=== PATIENT | female | born 1955 | race Caucasian/White ===

== ENCOUNTER 2019-11-30 02:58 | Inpatient (IN) | payer MEDICARE, SELFPAY ==
[2019-11-30] VITALS (20 sets, daily range): BP systolic 131–155; BP diastolic 68–83; PULSE 71–96; RESP 16–21; TEMP 36.2–37; O2SAT 92–99; BMI 26.8; BMI 25.5
--- NOTE | 2019-11-30 03:03 | RAD_ITS ---
STUDY: X-RAY CHEST REASON FOR EXAM: Female, 64 years old. HYPERTENSION -- NEURO SYMPTOMS TECHNIQUE: Single frontal view of the chest. COMPARISON: None. FINDINGS: The lungs are clear and expanded. There is no demonstrated pleural abnormality. There is borderline cardiomegaly. Aortic calcifications. There are diffuse degenerative changes of the visualized thoracic spine. Normal visualized ribs, clavicles, and shoulders. There is no demonstrated abnormality of the visualized soft tissue structures of the upper abdomen. RAD/Chest 1 View IMPRESSION: Degenerative changes, as described above. No demonstrated acute cardiopulmonary process. Electronically Signed: Matthew Llamas, at 3:58 EDT Tel , Service support ,
--- NOTE | 2019-11-30 03:03 | EKG12_ITS ---
Test Reason : STROKE Blood Pressure : / mmHG Vent. Rate : 086 BPM Atrial Rate : 086 BPM P-R Int : 218 ms QRS Dur : 092 ms QT Int : 406 ms P-R-T Axes : 045 -20 033 degrees QTc Int : 485 ms Sinus rhythm with 1st degree A-V block Possible Left atrial enlargement Borderline ECG Confirmed by MADISON VILLEGAS ([id number]), international editorial producer MELITON HUDSON ([id number]) on 12/01/2019 10:12:24 AM Referred By: Vito Gee Confirmed By:MADISON VILLEGAS
--- NOTE | 2019-11-30 03:03 | CT_ITS ---
STUDY: CT BRAIN WITHOUT CONTRAST REASON FOR EXAM: Female, 64 years old. CVA,RT SIDED WEAKNESS,SLURRED SPEECH THIS AM,LAST KNOWN WELL 10PM RADIATION DOSAGE (If Supplied By Facility): CTDIvol = ( 44.99 ) mGy, DLP = ( 762.36 ) mGycm TECHNIQUE: Transaxial CT imaging of the brain was performed without administration of intravenous contrast material. Individualized dose optimization techniques were used for this CT. COMPARISON: No relevant priors. FINDINGS: Normal soft tissue structures. Normal calvarium. There is mild cerebral atrophy with widening of the extra-axial spaces and ventricular dilatation. There are areas of decreased attenuation within the white matter tracts of the supratentorial brain, consistent with mild microvascular disease changes. Normal basal ganglia and thalami. Normal brainstem. Normal cerebellum. There is no intracranial hemorrhage. There are no findings of an acute ischemic infarction. Normal visualized paranasal sinuses. CT/Brain/Head without Contrast IMPRESSION: Involutional changes along with mild microangiopathic white matter disease. No acute intracranial hemorrhage or space-occupying lesion. N.B. : The above information has been verbally conveyed by Leandra Coyle MD to Jarrod Farrell MD, AA, on 11/30/2019 03:26:28 (ET). Electronically Signed: Leandra Coyle MD at 3:19 EDT , Service support ,
--- NOTE | 2019-11-30 03:03 | ED.RN ---
NO OLD EKGS IN MUSE
--- NOTE | 2019-11-30 03:04 | CT_ITS ---
We are attempting to reach an attending provider to discuss findings. An addendum with communication details will be sent when the communication is complete. STUDY: CTA HEAD AND NECK WITH CONTRAST REASON FOR EXAM: Female, 64 years old. RT SIDED WEAKNESS,SLURRED SPEECH,LAST KNOWN WELL AT 10PM RADIATION DOSAGE (If Supplied By Facility): CTDIvol = ( 15.30 ) mGy, DLP = ( 645.32 ) mGycm TECHNIQUE: CT angiography was performed with a multi-detector CT scanner. Data acquisition was obtained from the skull base through the vertex following intravenous administration of IV 100mL [id number]-[id number]. MIP images were reconstructed from the axial data set. Post-processing of the angiographic images was performed, with multiplanar reformation and 3D reconstruction. Individualized dose optimization techniques were used for this CT. COMPARISON: No relevant priors. FINDINGS: Normal bilateral petrous carotid arteries. There is calcified plaque formation of the right cavernous carotid artery, without a cross-sectional luminal stenosis. There is calcified plaque formation of the left cavernous carotid artery, without a cross-sectional luminal stenosis. Normal right A1 segments of the anterior cerebral artery. Normal left A1 segments of the anterior cerebral artery. Normal intact anterior communicating artery (ACOM). Normal bilateral A2 segments of the anterior cerebral arteries. Normal right M1 and M2 segments of the middle cerebral arteries, with a normal M1 bifurcation. Normal left M1 and M2 segments of the middle cerebral arteries, with a normal M1 bifurcation. Normal right posterior communicating artery (PCOM). Normal left posterior communicating artery (PCOM). Normal bilateral vertebral arteries. Normal basilar artery with a normal basilar bifurcation. The visualized bilateral superior cerebellar (SCA) arteries are normal. Normal bilateral P1, P2 and visualized P3 segments of the posterior cerebral arteries. There is no demonstrated aneurysm of the [place] of [place]. There is no demonstrated abnormality of the visualized brain. AORTIC ARCH: There is atherosclerotic calcific plaque formation of the aortic arch and great vessels arising from the aortic arch, without a hemodynamically significant stenosis. There is a normal origin of the brachiocephalic, left common carotid, and left subclavian arteries. RIGHT CAROTID ARTERIES: Normal right common carotid artery (CCA). Normal right common carotid bulb. Normal origin of the right internal carotid (ICA) artery without a hemodynamically significant stenosis. Normal visualized cervical portion of the right internal carotid artery. Normal origin of the right external carotid artery (ECA). LEFT CAROTID ARTERIES: Normal left common carotid artery (CCA). Normal left common carotid bulb. Normal origin of the left internal carotid (ICA) artery without a hemodynamically significant stenosis. Normal visualized cervical portion of the left internal carotid artery. Normal origin of the left external carotid artery (ECA). VERTEBRAL ARTERIES: Normal bilateral vertebral arteries. CT/CTA Head AND Neck W/ Contrast IMPRESSION: Mild calcified atherosclerotic disease involving the aortic arch and cavernous portion of the bilateral internal carotid arteries. Otherwise unremarkable CTA Head and neck with contrast. Electronically Signed: Leandra Coyle MD at 3:48 EDT , Service support ,
[2019-11-30 03:20] LABS: Absolute Lymphocyte Count 2.12 X10^3/uL (0.83-4.51); Absolute Neutrophil Count 5.5 X10^3/uL (2.0-7.7); Basophil# 0.05 X10^3/uL; Basophil% 0.6 % (0-1); Eosinophil# 0.17 X10^3/uL; Hemoglobin 12.2 g/dL (12.0-15.0); Lymphocyte # 2.12 X10^3/ul (4.0); Lymphocyte % 25.4 % (19-41); Mean Corp Hgb Conc 33.9 g/dL (32-36); Mean Corpuscular Volume 91.4 fL (81-99); Mean Platelet Vol. 9.9 fl (6.2-12.0); Monocyte# 0.43 X10^3/uL; Monocyte% 5.2 % (0-10); NRBC Flagged by Analyzer 0 % (0-5); Neutrophil # 5.54 X10^3/uL (2.7-7.7); Neutrophil % 66.4 % (47-70); Platelet Count 214 K/mm3 (150-450); RBC Distribution Width CV 14.1 % (11.6-14.6); RBC Distribution Width SD 47.4 fl (35.1-43.9); Red Blood Count 3.94 M/mm3 (4.2-5.4); White Blood Count 8.3 K/mm3 (4.4-11.0)
[2019-11-30 03:28] LABS: International Normalized Ratio 0.9; Prothrombin Time (Protime)PT. 12.1 SECONDS (11.7-14.9)
[2019-11-30 03:29] LABS: Partial Thromboplast Time 26.8 Seconds (24.1-36.2)
[2019-11-30 03:37] LABS: Anion Gap 9 (5-15); BUN 16 mg/dL (7-18); BUN/Creat Ratio 19.7 RATIO (10-20); Calcium,Total 8.6 mg/dL (8.5-10.1); Chloride 99 mmol/L (98-107); Creatinine, Serum 0.81 mg/dL (0.55-1.02); EST Glomerular Filtration Rate 75 mL/min (>60); Est Glom Filt Rate - Afr Amer 91 mL/min (>60); Estimated Creatinine Clearance 63.96 ml/min; Glucose 122 mg/dL (74-106); Potassium 3.2 mmol/L (3.5-5.1); Sodium Level 134 mmol/L (136-145)
--- NOTE | 2019-11-30 03:54 | ED.DCSUM_ITS ---
- ER Visit Summary Date of Service: 11/30/19 Chief Complaint: [Slurred speech and right-sided weakness] History of Present Illness: The patient is a 64 F [presents the emergency department with symptoms that she noted about an hour and a half prior to coming into the ER. Patient states that she went to bed around 10 PM. Patient had been drinking 3 beers and took a melatonin as well as some Benadryl because she is been having some issues with some teeth that will require a root canal and she has been self-medicating. Patient woke up to use the restroom approximately 1:30 AM and noted that her right arm was not working well and she had a difficult time walking with her right leg. Patient complained of paresthesias to the right side of her body. Patient thought her speech sounded somewhat slurred. She is never had symptoms like this before. She tells me she has no medical history. Patient not on any blood thinners. She denies any falls or head injuries.] Physical Examination: [HEENT-PERRLA, EOMI. Cranial nerves II through XII grossly intact. TMs clear. Mucous membranes moist. No adenopathy. Cardiovascular-regular rate and rhythm without murmur or ectopy Lungs-clear to auscultation, chest wall stable without crepitus or subcu emphysema Abdomen-normoactive bowel sounds, soft, nontender, no rebound or rigidity, no peritoneal signs. Neuro rtyl-[id number]-qwqv and heel ruiz testing reveals limb ataxia with the right arm and right leg. Patient had some subtle weakness of the right arm. She had paresthesias of the right arm and leg as well as the right side of her face. Her NIH stroke scale was a 5. No facial droop noted. Extremities-intact ?4, normal range of motion, normal pulses, atraumatic] Test Results: [CT scan of the brain without contrast obtained after a stroke team was called. The CT scan was unremarkable. CBC with differential was normal. Chemistries unremarkable other than a slightly depressed potassium of 3.2. Troponin is less than 0.015. Blood sugar was 122. Alcohol was 8.0. CTAs of the head and neck were unremarkable.] Emergency Department Course and Treatment: I discussed case with stroke neurologist at [facility] who felt patient was out of the window for TPA given that last known well was about 5 hours ago. It was felt patient was not a good TPA candidate. It was recommended that patient be admitted for further stroke work-up. She was given baby aspirin.] Treatment Plan: [Admit] Disposition: [Admit] Impression: [Cerebrovascular accident] This note was generated with [employer] dictation software. It may contain incorrect words, spelling, and punctuation that were not noted in review of the chart prior to signing ED Disposition - Plan for ED Patient: Referrals: Care Physician,No Primary [Primary Care Provider] -
[2019-11-30] MEDS: Aspirin 81 MG TAB.CHEW PO (03:59)
--- NOTE | 2019-11-30 04:17 | PCM.HP.STD ---
History of Present Illness Date of Admission: 11/30/19 Chief Complaint: CVA The patient is a 64 year old F with a PMH as below who presents with right-sided numbness tingling and weakness as well as some slurred speech. She states that she was possibly having a root canal but that got canceled because of the pain she ended up drinking 3 beers, took melatonin, as well as a Benadryl. She states that that was around 8:00 last night and she went to bed at around 10 PM. She woke up about an hour ago and had right-sided deficits with numbness and tingling in her right upper and lower extremity as well as weakness and some slurred speech. She also has some tingling in the right side of her face. She says that she got up to pee and actually fell. Did not hit her head or blackout. She says that things are improving, her right leg is no longer significantly weak and her slurred speech has essentially resolved. She still has some tingling in her face and in her right upper extremity. In the ER she had an NIH of 5. CT the brain was negative and CTA of the head and neck was unremarkable. She has no other medical history but does admit to not seeing a doctor regularly. Past Medical History Allergies No Known Allergies Allergy (Verified 11/30/19 03:02) Home Medications: Ambulatory Orders Medication Instructions Recorded Famotidine [Pepcid AC] 20 mg PO DAILY 11/30/19 Surgical History: - - Tubal ligation Smoking Status: Never smoker Tobacco Use: Non-smoker Alcohol: Occasional Drugs: None - *Family History Maternal History Items: COPD, Heart Disease Paternal History Items: - - Alcohol abuse Review of Systems Constitutional: Denies: Chills, Fever, Weight Change HEENT: Denies: Head Aches, Sinus Congestion, Sinus Drainage Cardiovascular: Denies: Chest Pain, Palpitations Respiratory: Denies: Cough, Shortness of breath at rest, Sputum production Gastrointestinal: Denies: Abdominal Pain, Nausea, Vomiting Genitourinary: Denies: Dysuria Musculoskeletal: Denies: Joint Pain, Joint Tenderness Skin: Denies: Rash, Wounds Neurological: Reports: Slurred speech, Focal weakness, Numbness, Tingling Psychiatric: Denies: Anxiety, Depression Hematologic/ Lymphatic: Denies: Easy Bruising, Easy Bleeding VTE Information - Inpt Only VTE Present on Admission: No - Physical Exam Vitals/I&O's: Vital Signs Temp Pulse Resp BP Pulse Ox 98.3 F 93 18 144/81 H 97 11/30/19 04:00 11/30/19 04:00 11/30/19 04:00 11/30/19 04:00 11/30/19 04:00 Oxygen Delivery Method Room Air Weight: 166 lb 0.129 oz Body Mass Index (BMI) 26.8 Finger Stick Blood Glucose 130 General: Alert, Oriented x3, Cooperative, No apparent distress HEENT: Atraumatic, PERRLA, EOMI, Normocephalic Oral: Moist Mucosa Neck: Supple, No JVD Lungs: Clear to auscultation, Normal air movement, No rhonchi, No wheeze, No rales Cardiovascular: Regular rate, Regular Rhythm, Normal S1, Normal S2, No murmurs Abdomen: Soft, Non Tender, Non-Distended, No Hepato-splenomegaly Extremities: No edema, Capillary Refill Less than 3 Seconds Skin: No rashes, No breakdown Neurological: Cranial nerves II-XII grossly intact, Deep Tendon Reflexes 2+/4 and Symmetrical, Motor Exam 5/5 strength throughout, - - Diminished sensation in the right face and right upper extremity. Also [id number] on the right is slightly ataxic compared to the left. Psych/Mental Status: Normal Affect, Appropriate Laboratory Results 11/30/19 03:10: WBC 8.3, RBC 3.94 L, Hgb 12.2, Hct 36.0 L, MCV 91.4, MCH 31.0, MCHC 33.9, RDW Std Deviation 47.4 H, RDW Coeff of Sandor 14.1, Plt Count 214, MPV 9.9, Immature Gran % (Auto) 0.400, Neut % (Auto) 66.4, Lymph % (Auto) 25.4, [place] % (Auto) 5.2, Eos % (Auto) 2.0, Baso % (Auto) 0.6, Absolute Neuts (auto) 5.5, Absolute Lymphs (auto) 2.12, Nucleated RBC % 0 11/30/19 03:10: PT 12.1, INR 0.9, APTT 26.8 11/30/19 03:10: Sodium 134 L, Potassium 3.2 L, Chloride 99, Carbon Dioxide 26.0, Anion Gap 9, BUN 16, Creatinine 0.81, Estim Creat Clear Calc 63.96, Est GFR (MDRD) Af Amer 91, Est GFR (MDRD) Non-Af 75, BUN/Creatinine Ratio 19.7, Glucose 122 H, Calcium 8.6, Troponin I < 0.015 11/30/19 03:10: Ethyl Alcohol 8.0 Current Medications Sodium Chloride () 1,000 mls @ 100 mls/hr IV .Q10H ONE Stop: 11/30/19 13:02 Labetalol HCl (Trandate) 20 mg IV X1 PRN PRN Reason: BLOOD PRESSURE Assessment/Plan 1. Left-sided CVA with right-sided symptoms -She has slurred speech, with right-sided numbness and tingling in her right upper and lower extremities which is improving, as well as right upper extremity ataxia -On presentation to the ER her NIH was 5 however she was outside of the window for TPA based on consultation with [facility] neurology -CTA of her head and neck was unremarkable -Continue with aspirin, PT/OT/speech therapy -Continue with statin therapy -MRI in the morning -Permissive hypertension however labetalol and hydralazine are available if necessary 2. GERD -Stable -Continue with Pepcid DVT: Lovenox Inpatient E&M: 33708 Init Hosp L2
--- NOTE | 2019-11-30 04:20 | MRI_ITS ---
STUDY: MRI BRAIN WITHOUT CONTRAST REASON FOR EXAM: Female, 64 years old. cva, rt side weakness, slurred speech TECHNIQUE: Standardized multiplanar fat and water weighted pulse sequences were obtained. COMPARISON: CT 11/30/2019 FINDINGS: There is mild cerebral atrophy with widening of the extra-axial spaces and ventricular dilatation. Normal white matter tracts of the supratentorial brain. 1 cm oval hyperintensity of the lateral aspect of the left thalamus demonstrates restricted diffusion consistent with an acute infarct. Normal T2* images of the brain without demonstrated susceptibility artifact. There is no demonstrated hemosiderin stain. Normal bilateral basal ganglia. Normal thalami. There is no extra-axial fluid accumulation. Normal flow voids within the major intracranial circulation suggesting patency by spin echo criteria. Normal sella turcica, pituitary gland, infundibular stalk, optic chiasm and hypothalamus. Normal tectal plate and pineal gland. Normal midbrain, roxane and medulla. Normal cerebellum. Normal basal cisterns. Normal bilateral temporal bones. Normal bilateral internal auditory canals. No demonstrated orbital abnormality, within the constraints of a routine brain study. Normal visualized paranasal sinuses. Normal calvarium and skull base. Normal visualized soft tissue structures. Normal visualized upper cervical spine. MRI/Brain without Contrast IMPRESSION: 1 cm acute infarct of the lateral aspect of the left thalamus. N.B. : The above information has been verbally conveyed by Rigo Bruno MD to Lalita Huang NP, on 11/30/2019 12:24:45 (ET). Electronically Signed: Rigo Bruno MD at 12:26 EDT Tel , Service support ,
[2019-11-30] MEDS: 0.9% Normal Saline 1,000 ML 100 ML IV ×3 (04:32→21:41)
[2019-11-30 05:39] LABS: Absolute Neutrophil Count 5.1 X10^3/uL (2.0-7.7); Basophil# 0.03 X10^3/uL; Basophil% 0.4 % (0-1); Eosinophil# 0.07 X10^3/uL; Hematocrit 35.5 % (37-47); Lymphocyte % 17.8 % (19-41); Mean Corp Hgb Conc 33.8 g/dL (32-36); Mean Corpuscular Hgb 30.5 pg (27.0-32.0); Mean Corpuscular Volume 90.1 fL (81-99); Mean Platelet Vol. 10.3 fl (6.2-12.0); Monocyte% 4.4 % (0-10); NRBC Flagged by Analyzer 0 % (0-5); Neutrophil # 5.12 X10^3/uL (2.7-7.7); Platelet Count 213 K/mm3 (150-450); RBC Distribution Width CV 14.3 % (11.6-14.6); RBC Distribution Width SD 47.3 fl (35.1-43.9); Red Blood Count 3.94 M/mm3 (4.2-5.4); White Blood Count 6.8 K/mm3 (4.4-11.0)
[2019-11-30 06:00] LABS: Anion Gap 8 (5-15); BUN 13 mg/dL (7-18); BUN/Creat Ratio 17.6 RATIO (10-20); Calcium,Total 8.1 mg/dL (8.5-10.1); Chloride 100 mmol/L (98-107); Cholesterol 218 mg/dL (200); Creatinine, Serum 0.74 mg/dL (0.55-1.02); EST Glomerular Filtration Rate 83 mL/min (>60); Est Glom Filt Rate - Afr Amer 101 mL/min (>60); Estimated Creatinine Clearance 51.81 ml/min; Glucose 121 mg/dL (74-106); High Density Lipoprotein 61 mg/dL; Potassium 3.7 mmol/L (3.5-5.1); Sodium Level 134 mmol/L (136-145); Triglycerides 169 mg/dL; Very Low Density Lipoprotein 34 mg/dL (5-40)
[2019-11-30] MEDS: Famotidine 20 MG Tablet PO (07:57)
[2019-11-30] MEDS: Enoxaparin 40 MG/0.4 ML Syringe SC (09:10)
[2019-11-30] MEDS: Ondansetron 4 MG/2 ML Vial IV (09:10)
[2019-11-30] MEDS: LORazepam 2 MG/ML Syringe 1 MG IV ×2 (10:02→11:00)
--- NOTE | 2019-11-30 12:26 | PCM.PROGNOTE ---
<Lalita Huang - Last Filed: 11/30/19 12:33> Subjective: Patient seen and examined. Reports continued right-sided weakness. Able to ambulate although reports right leg buckling and ataxia. Denies new neurologic symptoms or focal deficits. - Physical Exam Vitals/I&O's: Vital Signs Temp Pulse Resp BP Pulse Ox 98.1 F 81 16 131/77 H 92 11/30/19 12:00 11/30/19 12:00 11/30/19 12:00 11/30/19 12:00 11/30/19 12:00 Oxygen Delivery Method Room Air Weight: 158 lb 4.67 oz Body Mass Index (BMI) 25.5 Finger Stick Blood Glucose 130 Intake and Output for Last 24 Hours 11/28/19 11/29/19 11/30/19 23:59 23:59 23:59 Intake Total 895 / 895 Output Total 950 / 950 Balance -55 / -55 General: Alert, Oriented x3, Cooperative HEENT: Atraumatic, PERRLA, EOMI, Normocephalic Neck: Supple, No JVD, Negative Carotid Bruits Lungs: Clear to auscultation, Normal air movement Cardiovascular: Regular rate, Regular Rhythm, Normal S1, Normal S2, No murmurs Abdomen: Bowel Sounds Present, Soft, Non Tender, Non-Distended Extremities: No clubbing, No cyanosis, No edema, Capillary Refill Less than 3 Seconds Skin: No rashes, No breakdown Musculoskeletal: No Tenderness to Palpation of Joints or Extremities Neurological: - - Right upper extremity and right lower extremity 2/5 strength, sensory deficit right face and right upper extremity. Right upper extremity and right lower extremity ataxia. Mild facial droop right. Psych/Mental Status: Normal Affect, Appropriate Laboratory Results 11/30/19 03:10: WBC 8.3, RBC 3.94 L, Hgb 12.2, Hct 36.0 L, MCV 91.4, MCH 31.0, MCHC 33.9, RDW Std Deviation 47.4 H, RDW Coeff of Sandor 14.1, Plt Count 214, MPV 9.9, Immature Gran % (Auto) 0.400, Neut % (Auto) 66.4, Lymph % (Auto) 25.4, [place] % (Auto) 5.2, Eos % (Auto) 2.0, Baso % (Auto) 0.6, Absolute Neuts (auto) 5.5, Absolute Lymphs (auto) 2.12, Nucleated RBC % 0 11/30/19 03:10: PT 12.1, INR 0.9, APTT 26.8 11/30/19 03:10: Sodium 134 L, Potassium 3.2 L, Chloride 99, Carbon Dioxide 26.0, Anion Gap 9, BUN 16, Creatinine 0.81, Estim Creat Clear Calc 63.96, Est GFR (MDRD) Af Amer 91, Est GFR (MDRD) Non-Af 75, BUN/Creatinine Ratio 19.7, Glucose 122 H, Calcium 8.6, Troponin I < 0.015 11/30/19 03:10: Ethyl Alcohol 8.0 11/30/19 05:00: WBC 6.8, RBC 3.94 L, Hgb 12.0, Hct 35.5 L, MCV 90.1, MCH 30.5, MCHC 33.8, RDW Std Deviation 47.3 H, RDW Coeff of Sandor 14.3, Plt Count 213, MPV 10.3, Immature Gran % (Auto) 0.400, Neut % (Auto) 76.0 H, Lymph % (Auto) 17.8 L, [place] % (Auto) 4.4, Eos % (Auto) 1.0, Baso % (Auto) 0.4, Absolute Neuts (auto) 5.1, Absolute Lymphs (auto) 1.20, Nucleated RBC % 0 11/30/19 05:00: Sodium 134 L, Potassium 3.7, Chloride 100, Carbon Dioxide 26.0, Anion Gap 8, BUN 13, Creatinine 0.74, Estim Creat Clear Calc 51.81, Est GFR (MDRD) Af Amer 101, Est GFR (MDRD) Non-Af 83, BUN/Creatinine Ratio 17.6, Glucose 121 H, Calcium 8.1 L, Triglycerides 169, Cholesterol 218 H, LDL Cholesterol 123, VLDL Cholesterol 34, HDL Cholesterol 61 Current Medications Acetaminophen (Tylenol) 650 mg PO Q6H PRN PRN PRN Reason: Pain Score 1-10/Temp > 100.7 F Aspirin (Aspirin, Baby) 81 mg PO DAILY@0800 [facility] Last Admin: 11/30/19 09:15 Dose: Not Given Documented by: Atorvastatin Calcium (Lipitor) 80 mg PO QHS [facility] Enoxaparin Sodium (Lovenox) 40 mg SC DAILY [facility] Last Admin: 11/30/19 09:10 Dose: 40 mg Documented by: Famotidine (Pepcid) 20 mg PO DAILY [facility] Last Admin: 11/30/19 07:57 Dose: 20 mg Documented by: Hydralazine HCl (Apresoline Iv) 5 mg IV Q30M PRN PRN Reason: to maintain BP goals Sodium Chloride () 1,000 mls @ 100 mls/hr IV .Q10H ONE Stop: 11/30/19 13:02 Last Infusion: 11/30/19 11:05 Dose: Infused Documented by: Sodium Chloride () 1,000 mls @ 100 mls/hr IV .Q10H [facility] Last Admin: 11/30/19 12:17 Dose: 100 mls/hr Documented by: Labetalol HCl (Trandate) 10 - 20 mg IV Q10M PRN PRN PRN Reason: to maintain BP goals Lorazepam (Ativan) 1 mg IV X1 PRN PRN Reason: prior to MRI Stop: 11/30/19 17:00 Last Admin: 11/30/19 10:02 Dose: 1 mg Documented by: Ondansetron HCl (Zofran) 4 mg IV Q8H PRN PRN PRN Reason: NAUSEA/VOMITING Last Admin: 11/30/19 09:10 Dose: 4 mg Documented by: Sodium Chloride () 10 - 40 ml IV UD PRN PRN Reason: SALINE FLUSH Medical Necessity - Tobacco Use Smoking Status: Never smoker Tobacco Use: Non-smoker Assessment/Plan 1. Acute left thalamic infarct-continue aspirin, statin. PT/OT/ST. MRI demonstrates 1 cm acute infarct of the lateral aspect of the left thalamus. Head and neck CTA shows mild atherosclerotic disease involving the aortic arch and cavernous portion of the bilateral internal carotid arteries. Otherwise unremarkable. Obtain tele-neuro consult. Obtain echocardiogram. Plan for rehab unit at discharge given ongoing right-sided deficits. 2. GERD-continue famotidine. DVT prophylaxis-Lovenox subcu This patient was seen by JONNIE Goodwin under the supervision of Dr. Hines. <Kasey Hines - Last Filed: 11/30/19 13:49> - Physical Exam Vitals/I&O's: Vital Signs Temp Pulse Resp BP Pulse Ox 98.1 F 81 16 131/77 H 92 11/30/19 12:00 11/30/19 12:00 11/30/19 12:00 11/30/19 12:00 11/30/19 12:00 Oxygen Delivery Method Room Air Weight: 71.8 kg Body Mass Index (BMI) 25.5 Finger Stick Blood Glucose 130 Intake and Output for Last 24 Hours 11/28/19 11/29/19 11/30/19 23:59 23:59 23:59 Intake Total 895 / 895 Output Total 950 / 950 Balance -55 / -55 Laboratory Results 11/30/19 03:10: WBC 8.3, RBC 3.94 L, Hgb 12.2, Hct 36.0 L, MCV 91.4, MCH 31.0, MCHC 33.9, RDW Std Deviation 47.4 H, RDW Coeff of Sandor 14.1, Plt Count 214, MPV 9.9, Immature Gran % (Auto) 0.400, Neut % (Auto) 66.4, Lymph % (Auto) 25.4, [place] % (Auto) 5.2, Eos % (Auto) 2.0, Baso % (Auto) 0.6, Absolute Neuts (auto) 5.5, Absolute Lymphs (auto) 2.12, Nucleated RBC % 0 11/30/19 03:10: PT 12.1, INR 0.9, APTT 26.8 11/30/19 03:10: Sodium 134 L, Potassium 3.2 L, Chloride 99, Carbon Dioxide 26.0, Anion Gap 9, BUN 16, Creatinine 0.81, Estim Creat Clear Calc 63.96, Est GFR (MDRD) Af Amer 91, Est GFR (MDRD) Non-Af 75, BUN/Creatinine Ratio 19.7, Glucose 122 H, Calcium 8.6, Troponin I < 0.015 11/30/19 03:10: Ethyl Alcohol 8.0 11/30/19 05:00: WBC 6.8, RBC 3.94 L, Hgb 12.0, Hct 35.5 L, MCV 90.1, MCH 30.5, MCHC 33.8, RDW Std Deviation 47.3 H, RDW Coeff of Sandor 14.3, Plt Count 213, MPV 10.3, Immature Gran % (Auto) 0.400, Neut % (Auto) 76.0 H, Lymph % (Auto) 17.8 L, [place] % (Auto) 4.4, Eos % (Auto) 1.0, Baso % (Auto) 0.4, Absolute Neuts (auto) 5.1, Absolute Lymphs (auto) 1.20, Nucleated RBC % 0 11/30/19 05:00: Sodium 134 L, Potassium 3.7, Chloride 100, Carbon Dioxide 26.0, Anion Gap 8, BUN 13, Creatinine 0.74, Estim Creat Clear Calc 51.81, Est GFR (MDRD) Af Amer 101, Est GFR (MDRD) Non-Af 83, BUN/Creatinine Ratio 17.6, Glucose 121 H, Calcium 8.1 L, Triglycerides 169, Cholesterol 218 H, LDL Cholesterol 123, VLDL Cholesterol 34, HDL Cholesterol 61 Current Medications Acetaminophen (Tylenol) 650 mg PO Q6H PRN PRN PRN Reason: Pain Score 1-10/Temp > 100.7 F Aspirin (Aspirin, Baby) 81 mg PO DAILY@0800 [facility] Last Admin: 11/30/19 09:15 Dose: Not Given Documented by: Atorvastatin Calcium (Lipitor) 80 mg PO QHS [facility] Enoxaparin Sodium (Lovenox) 40 mg SC DAILY [facility] Last Admin: 11/30/19 09:10 Dose: 40 mg Documented by: Famotidine (Pepcid) 20 mg PO DAILY [facility] Last Admin: 11/30/19 07:57 Dose: 20 mg Documented by: Hydralazine HCl (Apresoline Iv) 5 mg IV Q30M PRN PRN Reason: to maintain BP goals Sodium Chloride () 1,000 mls @ 100 mls/hr IV .Q10H [facility] Last Admin: 11/30/19 12:17 Dose: 100 mls/hr Documented by: Labetalol HCl (Trandate) 10 - 20 mg IV Q10M PRN PRN PRN Reason: to maintain BP goals Lorazepam (Ativan) 1 mg IV X1 PRN PRN Reason: prior to MRI Stop: 11/30/19 17:00 Last Admin: 11/30/19 10:02 Dose: 1 mg Documented by: Ondansetron HCl (Zofran) 4 mg IV Q8H PRN PRN PRN Reason: NAUSEA/VOMITING Last Admin: 11/30/19 09:10 Dose: 4 mg Documented by: Sodium Chloride () 10 - 40 ml IV UD PRN PRN Reason: SALINE FLUSH Assessment/Plan This patient was seen in conjunction with Lalita Huang REHEATER. I have independently interviewed and examined the patient and reviewed pertinent historical, laboratory, and other data. Please refer to her note for patient's presentation, findings, and recommendations. Patient was seen and examined. Complains of feeling nauseous, has weakness on the right side of the body. NIHSS score is 5 Vitals were reviewed -stable Lab reviewed, hypokalemia resolved, K3.7, hyponatremia persists, 134 Physical Exam: Gen: In mild distress, not pale, not jaundiced, alert oriented x3 CVS:HS I +II, regular, no murmurs RESP: Diminished at lung bases GI: BS present and normal, nontender, no palpable organs EXT:No edema [employer] REPAIRER: Alert oriented x3, right facial droop, drift in the right upper extremity ASSESSMENT: 1. Acute left thalamic stroke 2. Hypertension 3. GERD 4. Hyperlipidemia Meds reviewed Plan: Teleneurology consult 2D echo Continue on aspirin, statin Allow for permissive hypertension Discontinue any prn BP meds Inpatient E&M: 58621 Subs Hosp L2
--- NOTE | 2019-11-30 12:29 | ECHOD_ITS ---
Reason For Study: TIA/CVA Procedure This was a 2D Doppler, Color Flow transthoracic echocardiogram. Exam performed portable in patient room. Left Ventricle Normal size and thickness. Apical false tendon noted. The estimated ejection fraction is 65 %. Stage 1 diastolic dysfunction. No regional wall motion abnormalities noted. Right Ventricle Normal size and thickness. A moderator band is seen in the right ventricle. Normal systolic function. Atria Normal left atrium. Normal right atrium. Normal atrial septum. Bubble contrast study negative for right to left interatrial shunt. Mitral Valve The mitral valve is structurally normal. No prolapse or stenosis seen. Tricuspid Valve Normal tricuspid valve. Unable to estimate RV systolic pressure due to insufficient tricuspid regurgitant envelope. Aortic Valve Trisinus/trileaflet aortic valve. Normal aortic valve. Trivial aortic valve insufficiency. Pulmonic Valve Normal pulmonic valve. Great Vessels Normal aortic root. Normal arch. Normal inferior vena cava. Inferior vena cava collapse with sniff. Pericardium/Pleural No pericardial effusion. Medication Performed a rapid injection of agitated mix of 9 cc saline and 1cc air to assess for atrial septal defect. MMode/2D Measurements & Calculations LVIDd: 4.8 cm IVSd: 1.0 cm Ao root diam: 3.3 cm LVIDs: 3.1 cm LVPWd: 1.0 cm RVDd: 3.2 cm FS: 36.4 % LAV(MOD-bp): 68.0 ml LA A4 area: 21.6 cm2 LA dimension(2D): 4.0 cm LAV(MOD-bp) Indexed: 37.6 ml/m2 LAV(MOD-sp2): 64.1 ml LAV(MOD-sp4): 64.5 ml RA A4 area: 13.8 cm2 Doppler Measurements & Calculations MV E max gabriel: 73.4 cm/sec Lat Peak E' Gabriel: 9.8 cm/sec Med Peak E' Gabriel: 10.3 cm/sec MV A max gabriel: 102.1 cm/sec E/E' lat: 7.5 E/E' med: 7.1 MV E/A: 0.72 Ao V2 max: 129.3 cm/sec LV V1 max: 84.1 cm/sec PA V2 max: 107.3 cm/sec Ao max P.7 mmHg LV V1 max P.8 mmHg Ao V2 mean: 87.0 cm/sec LV V1 mean P.8 mmHg Ao mean P.3 mmHg LV V1 mean: 64.4 cm/sec Ao V2 VTI: 27.1 cm LV V1 VTI: 20.7 cm Interpretation Summary The estimated ejection fraction is 65 %. Stage 1 diastolic dysfunction. Bubble contrast study negative for right to left interatrial shunt. Unable to estimate RV systolic pressure due to insufficient tricuspid regurgitant envelope. Trivial aortic valve insufficiency. There is no comparison study available. Ordering Physician: Lalita Huang Referring Physician: REYNOLD PCP Performed By: Jess Garrison RDCS, RVT
--- NOTE | 2019-11-30 12:56 | CASEMGMT ---
SW met with patient, introduced self and role at [facility]. THAD spoke with her about [facility] Inpatient Rehab Unit. She is interested in going to the Rehab Unit. THAD left a message for Rosy in Rehab regarding patient. Plan: [facility] Inpatient Rehab Unit pending their acceptance and insurance approval. Anjelica MILLS MSW
--- NOTE | 2019-11-30 12:59 | CASEMGMT ---
SW completed PHQ 9 with patient as she had a Stroke. She scored a 0 which indicates no depression. Anjelica MILLS MSW
--- NOTE | 2019-11-30 14:45 | CASEMGMT ---
Patient has been accepted to the Rehab Unit. Anjelica MILLS MSW
[2019-12-01] VITALS (7 sets, daily range): BP systolic 132–151; BP diastolic 61–82; PULSE 68–77; RESP 12–18; TEMP 36.6–37.1; O2SAT 93–98
[2019-12-01] MEDS: Acetaminophen 325 MG Tablet 650 MG PO (03:02)
[2019-12-01] MEDS: 0.9% Normal Saline 1,000 ML 100 ML IV (08:02)
[2019-12-01] MEDS: Aspirin 81 MG TAB.CHEW PO (08:14)
[2019-12-01] MEDS: Clopidogrel Bisulfate 75 MG Tablet PO (08:14)
[2019-12-01] MEDS: Enoxaparin 40 MG/0.4 ML Syringe SC (08:14)
[2019-12-01] MEDS: Famotidine 20 MG Tablet PO (08:14)
--- NOTE | 2019-12-01 10:45 | DCINST_ITS ---
- Discharge Diagnoses Reason(s) for Visit for Discharge Instructions: CVA You will use the following diet at home:: Cardiac Your food should be the consistency of: Regular Your liquids should be the consistency of: Regular/Thin Discharge Activity: Return to Normal Activity Allergies/Adverse Reactions: Allergies No Known Allergies Allergy (Verified 11/30/19 03:02) Medications to take at Discharge Famotidine [Pepcid AC] 20 mg PO DAILY 11/30/19 Aspirin [Aspirin, Baby] 81 mg PO DAILY@0800 tab.chew 12/01/19 Atorvastatin Calcium [Lipitor] 80 mg PO QHS tablet 12/01/19 Clopidogrel Bisulfate [Plavix] 75 mg PO DAILY tablet 12/01/19 Primary Care Physician: Care Physician,No Primary [Primary Care Provider] - Test Results: Test results from this visit will be discussed in further detail at your follow- up appointment, if applicable. Proposed Discharge Date: 12/01/19
--- NOTE | 2019-12-01 10:46 | DS.PCM_ITS ---
Discharge Date and Diagnosis Date of Admission: 11/30/19 Date of Discharge: 12/01/19 - Primary Discharge Diagnosis Acute left thalamic CVA Hyperlipidemia Hospital Course and Treatment Imaging Results: Clinical Impression(s) from Imaging Studies Brain CT 11/30/19 03:03 IMPRESSION: Involutional changes along with mild microangiopathic white matter disease. No acute intracranial hemorrhage or space-occupying lesion. N.B. : The above information has been verbally conveyed by Leandra Coyle MD to Jarrod Farrell MD, AA, on 11/30/2019 03:26:28 (ET). Electronically Signed: Leandra Coyle MD at 3:19 EDT , Service support , Chest X-Ray 11/30/19 03:03 IMPRESSION: Degenerative changes, as described above. No demonstrated acute cardiopulmonary process. Electronically Signed: Matthew Llamas at 3:58 EDT Tel , Service support , Head/Neck CTA 11/30/19 03:04 IMPRESSION: Mild calcified atherosclerotic disease involving the aortic arch and cavernous portion of the bilateral internal carotid arteries. Otherwise unremarkable CTA Head and neck with contrast. Electronically Signed: Leandra Coyle MD at 3:48 EDT , Service support , ADDENDUM: 11/30/19 0417 IMPRESSION: Mild calcified atherosclerotic disease involving the aortic arch and cavernous portion of the bilateral internal carotid arteries. Otherwise unremarkable CTA Head and neck with contrast. N.B. : The above information has been verbally conveyed by Leandra Coyle MD to Dr.Remus Bud MD, on 11/30/2019 04:10:36 (ET). Electronically Signed: Leandra Coyle MD at 3:48 EDT , Service support , Brain MRI 11/30/19 04:20 IMPRESSION: 1 cm acute infarct of the lateral aspect of the left thalamus. N.B. : The above information has been verbally conveyed by Rigo Bruno MD to Lalita Huang NP, on 11/30/2019 12:24:45 (ET). Electronically Signed: Rigo Bruno MD at 12:26 EDT Tel , Service support , ADDENDUM: 11/30/19 1233 IMPRESSION: 1 cm acute infarct of the lateral aspect of the left thalamus. N.B. : The above information has been verbally conveyed by Rigo Bruno MD to Lalita Huang NP, on 11/30/2019 12:24:45 (ET). Electronically Signed: Rigo Bruno MD at 12:26 EDT Tel , Service support , Teleneurology Operations: None Procedures: 2-D Echocardiogram Summary of Care Provided: The patient is a 64 year old F who was having problems with dental caries. Dental appointment got canceled and she ended up drinking 3 beers with melatonin and Benadryl to sleep. She woke up the next morning with right-sided tingling and numbness in her face, upper and lower extremities as well as weakness with slurred speech. She got up to go to the bathroom and fell but did not hit her head or pass out. In the emergency department her NIHSS score was 5. CTA of the head and neck was unremarkable as well as CT of the head. Patient was admitted to the PCU and monitored on telemetry. She had an MRI that showed acute left thalamic stroke. She was seen by telemetry neurology. She was started on aspirin, statin. Plavix was recommended to be added. 2D echo showed no acute abnormalities including PFO or valvular lesions. HgbA1c 5.6. Patient was seen by PT and OT as well as ST and skilled for discharge to acute inpatient rehab. Subjective: On the day of discharge, patient was seen and examined. Patient was seen and examined. Still has tingling and numbness in the right side of the body including face. Power in her right upper and lower extremities is improving. - Physical Exam Vitals/I&O's: Vital Signs Temp Pulse Resp BP Pulse Ox 98.6 F 68 12 132/78 H 93 12/01/19 09:25 12/01/19 09:25 12/01/19 09:25 12/01/19 09:25 12/01/19 09:25 Oxygen Delivery Method Room Air Weight: 71.8 kg Body Mass Index (BMI) 25.5 Finger Stick Blood Glucose 130 Intake and Output for Last 24 Hours 11/29/19 11/30/19 12/01/19 23:59 23:59 23:59 Intake Total 2578.33 / 2578.33 1026.67 / 1026.67 Output Total 1450 / 1450 1100 / 1100 Balance 1128.33 / 1128.33 -73.33 / -73.33 General: Alert, Oriented x3, Cooperative, No apparent distress HEENT: Atraumatic, PERRLA, EOMI, Normocephalic Oral: Moist Mucosa Neck: Supple Lungs: Clear to auscultation, Normal air movement Cardiovascular: Regular rate, Regular Rhythm, Normal S1, Normal S2, No murmurs Abdomen: Bowel Sounds Present, Soft, Non Tender, Non-Distended Extremities: No edema Skin: No rashes, No breakdown Musculoskeletal: No Tenderness to Palpation of Joints or Extremities Lymphatic: No Cervical, Supraclavicular, or Inguinal Adenopathy - except for numbness in right side of face Neurological: Cranial nerves II-XII grossly intact, Neuro grossly intact - except power in RUE/RLE 4/5 Psych/Mental Status: Normal Affect, Appropriate Current Medications Acetaminophen (Tylenol) 650 mg PO Q6H PRN PRN PRN Reason: Pain Score 1-10/Temp > 100.7 F Last Admin: 12/01/19 03:02 Dose: 650 mg Documented by: Aspirin (Aspirin, Baby) 81 mg PO DAILY@0800 [facility] Last Admin: 12/01/19 08:14 Dose: 81 mg Documented by: Atorvastatin Calcium (Lipitor) 80 mg PO QHS [facility] Last Admin: 11/30/19 21:40 Dose: Not Given Documented by: Clopidogrel Bisulfate (Plavix) 75 mg PO DAILY [facility] Last Admin: 12/01/19 08:14 Dose: 75 mg Documented by: Enoxaparin Sodium (Lovenox) 40 mg SC DAILY [facility] Last Admin: 12/01/19 08:14 Dose: 40 mg Documented by: Famotidine (Pepcid) 20 mg PO DAILY [facility] Last Admin: 12/01/19 08:14 Dose: 20 mg Documented by: Sodium Chloride () 1,000 mls @ 100 mls/hr IV .Q10H [facility] Last Admin: 12/01/19 08:02 Dose: 100 mls/hr Documented by: Ondansetron HCl (Zofran) 4 mg IV Q8H PRN PRN PRN Reason: NAUSEA/VOMITING Last Admin: 11/30/19 09:10 Dose: 4 mg Documented by: Sodium Chloride () 10 - 40 ml IV UD PRN PRN Reason: SALINE FLUSH Discharge Diet: Low fat/ Low Cholesterol, 2000 mg Sodium Diet Discharge Activity: Return to Normal Activity Home Medications: Medications to take at Discharge Famotidine [Pepcid AC] 20 mg PO DAILY 11/30/19 Aspirin [Aspirin, Baby] 81 mg PO DAILY@0800 tab.chew 12/01/19 Atorvastatin Calcium [Lipitor] 80 mg PO QHS tab 12/01/19 Clopidogrel Bisulfate [Plavix] 75 mg PO DAILY tab 12/01/19 Primary Care Physician: Care Physician,No Primary [Primary Care Provider] - Disposition: Inpt Rehab Unit/Facility Minutes spent on discharge:: 45 Patient Condition:: Stable Medical Necessity - Tobacco Use Smoking Status: Never smoker Tobacco Use: Non-smoker Meaningful Use Info Meaningful Use Diagnoses (Choose all that apply): Ischemic CVA - CVA Therapy Assessed for PT,OT and/or ST?: Yes - Ischemic Stroke Antithrombotic order at d/c?: Yes Dx of Atrial fib/flutter?: No Anticoagulant at discharge?: No Reason anticoagulant not ordered: Treatment not Indicated Statins at discharge?: Yes Primary Dx Acute Ischemic CVA?: Yes IV tPA ordered during stay?: No Reason IV t-PA not ordered: Treatment not Indicated Inpatient E&M: 72634 Disch Hosp
[2019-12-01] MEDS: Atorvastatin Calcium 80 MG Tablet PO (10:53)
--- NOTE | 2019-12-01 11:50 | CASEMGMT ---
Social Work Physician stating pt is ready for discharge today. Phone call to Rosy in Inpt Rehab and they are able to accept pt today. THAD met with pt and informed that discharge is planned for today and that pt will be going to Inpt Rehab. Pt Questions about rehab answered and pt is agreeable to transfer. SW requested to call pt to inform him of discharge plan. Pt refused stating she would call right then and update. Nursing made aware that pt can transfer when ready. Plan: Inpatient Rehabilitation [facility]
--- NOTE | 2019-12-01 12:27 | NURSING ---
report called to Nadia GAXIOLA in inpt rehab
[2019-12-01 13:00] LABS: Hemoglobin A1c 5.6 % (4.2-6.3)
== END 2019-12-01 14:02 | DRG 65 ==
LOC: ED 03:31 → PCU 04:11
PROVIDERS: Admitting Provider Family Medicine; Emergency Provider Emergency Medicine; Referring Provider Family Medicine; Visit Provider Internal Medicine
DX: I63.9 Cerebral infarction, unspecified (principal); G81.91 Hemiplegia, unspecified affecting right dominant side; E87.1 Hypo-osmolality and hyponatremia; R47.81 Slurred speech; E78.5 Hyperlipidemia, unspecified; R29.705 NIHSS score 5; R27.0 Ataxia, unspecified; R20.2 Paresthesia of skin; K21.9 Gastro-esophageal reflux disease without esophagitis; E87.6 Hypokalemia; I10 Essential (primary) hypertension; I70.0 Atherosclerosis of aorta
CPT/HCPCS: 36415; 70450; 70496; 70498; 70551; 71045; 80048; 80061; 80320; 83036; 84484; 85025; 85610; 85730; 93005; 93306; 94762; 97116; 97162; 97167; 97530; 99285; J7030; Q9967; A4216; G0480; J2405

== ENCOUNTER 2019-12-01 14:08 | Inpatient (IN) | payer MEDICARE, SELFPAY ==
[2019-11-30 20:07] VITALS: BMI 25.5
[2019-12-01 14:30] VITALS: BP 139/79; PULSE 64; RESP 16; TEMP 37; O2SAT 98
[2019-12-01 14:42] VITALS: BMI 25.7
[2019-12-01] MEDS: Acetaminophen 325 MG Tablet 650 MG PO (15:39)
[2019-12-01 16:41] VITALS: BMI 25.8
[2019-12-01] MEDS: Senna/Docusate Sodium 1 Tablet 2 TABLET PO (20:18)
[2019-12-01 22:00] VITALS: BP 140/77; PULSE 73; RESP 16; TEMP 36.9; O2SAT 98
--- NOTE | 2019-12-02 05:08 | NURSING ---
REVIEWED AND AGREE WITH CHEST PAINTING AND SEALING SUPERVISOR'S FUNCTIONAL ASSESSMENT AND HAND OFF CHARTING.
[2019-12-02] MEDS: Enoxaparin 40 MG/0.4 ML Syringe SC (05:26)
--- NOTE | 2019-12-02 09:04 | PCM.HP.STD ---
Problem List (1) Physical debility Status: Acute Comment: due to ischemic L thalamic CVA on 11/30/2019 (2) GERD (gastroesophageal reflux disease) Status: Chronic (3) Anxiety Status: Chronic (4) Hyponatremia Status: Acute (5) Dyslipidemia Status: Chronic (6) Ischemic cerebrovascular accident (CVA) Status: Acute Comment: Left thalamus on 11/30/2019 (7) Grade I diastolic dysfunction Status: Chronic History of Present Illness Date of Admission: 12/01/19 Chief Complaint: Right side numbness, gait instability and vertical nystagmus secondary to recent left thalamic ischemic CVA. The patient is a 64 year old F with a past medical history of GERD presented to the [facility] emergency department on 11/30/2019 complaining of right side numbness and weakness with slurred speech. Symptoms were not present when she went to bed but were present in the a.m. and the time of onset could not be determined. She was not given TPA. Initial CT scan of the head without contrast showed white matter disease but no stroke. MRI of the brain showed a 1 cm left thalamic infarct. Echocardiogram showed stage I diastolic dysfunction with an EF of 65% and no significant valvular heart disease. There was no PFO or other evidence of a right to left shunt. Tele-neurology was consulted and they recommended high-dose statin, aspirin and Plavix for 1 month and then discontinue Plavix but continue lifelong aspirin. She was transferred to the inpatient rehab unit at [facility] on 12/01/2023 greater than 3 hours of therapy daily to restore her to her prior level of independence. Prior to the stroke she was independent with all ADLs and driving. Interpretation Summary The estimated ejection fraction is 65 %. Stage 1 diastolic dysfunction. Bubble contrast study negative for right to left interatrial shunt. Unable to estimate RV systolic pressure due to insufficient tricuspid regurgitant envelope. Trivial aortic valve insufficiency. There is no comparison study available. ADDENDUM by Leandra Coyle MD on 11/30/[address]/CTA Head AND Neck W/ Contrast IMPRESSION: Mild calcified atherosclerotic disease involving the aortic arch and cavernous portion of the bilateral internal carotid arteries. Otherwise unremarkable CTA Head and neck with contrast. Past Medical History Past Medical History (Chronic Problems): Chronic Problems GERD (gastroesophageal reflux disease) (Chronic) Anxiety (Chronic) Dyslipidemia (Chronic) Grade I diastolic dysfunction (Chronic) Allergies No Known Allergies Allergy (Verified 11/30/19 03:02) Home Medications: Ambulatory Orders Medication Instructions Recorded Famotidine [Pepcid AC] 20 mg PO DAILY 11/30/19 Aspirin [Aspirin, Baby] 81 mg PO DAILY@0800 12/01/19 Atorvastatin Calcium [Lipitor] 80 mg PO QHS 12/01/19 Clopidogrel Bisulfate [Plavix] 75 mg PO DAILY 12/01/19 Surgical History: - - Tubal ligation Psychiatric History: Anxiety Lives: Spouse/ Significant Other Smoking Status: Never smoker Tobacco Use: Non-smoker Alcohol: Occasional Drugs: None - *Family History Maternal History Items: COPD, Heart Disease, - - Breast cancer in her mother. Maternal grandmother also had breast cancer. Paternal History Items: - - Alcohol abuse. She thinks he passed with cancer but cannot tell me what kind of cancer. Offspring History Items: - - She has a daughter who was diagnosed with breast cancer at the age of 23. Sibling History Items: COPD, Diabetes, Heart Disease, - - Obesity Review of Systems Constitutional: Denies: Chills, Fever, Weight Change Eyes: Reports: Vision Change - She gets nauseated and lightheaded with vertical gaze upward and downward. HEENT: Denies: Difficulty Hearing, Difficulty Swallowing, Head Aches, Sinus Congestion, Sinus Drainage, Sore Throat Cardiovascular: Denies: Chest Pain, Palpitations Respiratory: Denies: Cough, Shortness of Breath, Shortness of breath at rest, Shortness of breath upon exertion, Sputum production Gastrointestinal: Denies: Abdominal Pain, Constipation, Diarrhea, Nausea, Vomiting Genitourinary: Denies: Dysuria Gynecological: Denies: Breast symptoms Musculoskeletal: Denies: Joint Pain, Joint swelling, Joint Tenderness Skin: Denies: Jaundice, Rash, Wounds Neurological: Reports: Balance problems, Change in Speech, Slurred speech. Denies: Double vision, Confusion, Focal weakness, Numbness, Tingling, Tremor, Seizures Psychiatric: Reports: Anxiety, - - She gets tearful easily and gets upset and anxious with bad news, blood draws. Denies: Depression, Homicidal Ideations, Suicidal Ideations Endocrine: Denies: Change in Body Habitus Hematologic/ Lymphatic: Denies: Easy Bruising, Easy Bleeding, Hx of blood clot VTE Information - Inpt Only VTE Present on Admission: No VTE Mechan Device Prophylaxis: Knee High SILVESTRE Hose VTE Pharm Prophylaxis ordered?: Yes Patient Problems: Active and Suspected Problems Physical debility (Acute) due to ischemic L thalamic CVA on 11/30/2019 Hyponatremia (Acute) Ischemic cerebrovascular accident (CVA) (Acute) Left thalamus on 11/30/2019 - Physical Exam Vitals/I&O's: Vital Signs Temp Pulse Resp BP Pulse Ox 98.4 F 73 16 140/77 H 98 12/01/19 22:00 12/01/19 22:00 12/01/19 22:00 12/01/19 22:00 12/01/19 22:00 Oxygen Delivery Method Room Air Weight: 159 lb 9.835 oz Body Mass Index (BMI) 25.7 Finger Stick Blood Glucose 130 General: Alert, Oriented x3, Cooperative, No apparent distress, Well developed, Well nourished HEENT: Atraumatic, PERRLA, EOMI, Normocephalic, - - she has mild nystagmus with upward and downward gaze Oral: Moist Mucosa, No Gingival or Mucosal Lesions/ Ulcerations Neck: Supple, No JVD, Negative Carotid Bruits, No Nuchal Rigidity, Trachea Midline Lungs: Clear to auscultation, Normal air movement Cardiovascular: Regular rate, Regular Rhythm, Normal S1, Normal S2, No murmurs Abdomen: Bowel Sounds Present, Soft, Non Tender, Non-Distended Extremities: No clubbing, No cyanosis, No edema, Capillary Refill Less than 3 Seconds, No Calf Tenderness, Peripheral Pulses Normal Skin: No rashes, No breakdown Musculoskeletal: No Tenderness to Palpation of Joints or Extremities, No Muscle Wasting Neurological: Cranial nerves II-XII grossly intact, - - She has numbness of the right face and the R arma and leg. She slaps the right foot down when walking at times and is a little slower advancing the right foot. She sometimes has trouble picking out what word she wants. Overall her speech is very fluid. She has vertical nystagmus. Psych/Mental Status: Normal Affect, Appropriate Current Medications Acetaminophen (Tylenol) 650 mg PO Q6H PRN PRN PRN Reason: Pain Score 1-3/10 Last Admin: 12/01/19 15:39 Dose: 650 mg Documented by: Aspirin (Aspirin, Baby) 81 mg PO DAILY@0800 MARCIA Atorvastatin Calcium (Lipitor) 80 mg PO QHS [facility] Bisacodyl (Dulcolax) 10 mg RECTAL .PRN X 1 PRN PRN Reason: Constipation Clopidogrel Bisulfate (Plavix) 75 mg PO DAILY [facility] Enoxaparin Sodium (Lovenox) 40 mg SC DAILY@0600 [facility] Last Admin: 12/02/19 05:26 Dose: 40 mg Documented by: Famotidine (Pepcid) 20 mg PO DAILY [facility] Magnesium Hydroxide (Milk Of Magnesia) 30 ml PO .PRN X 1 PRN PRN Reason: Constipation Senna/Docusate Sodium (Senokot-S, Gin-Colace) 2 tablet PO BID [facility] Last Admin: 12/01/19 20:18 Dose: 2 tablet Documented by: Assessment/Plan All Active Problems Physical debility (Acute) Hyponatremia (Acute) Ischemic cerebrovascular accident (CVA) (Acute) Impressions 1. Debility secondary to recent ischemic CVA left thalamus on 11/30/2019. Numbness on the right side and very mild weakness with vertical nystagmus and nausea and lightheadedness with upward and downward gaze 2. Ischemic left thalamic CVA 3. Dyslipidemia 4. anxiety 5. Stage I diastolic dysfunction 6. GERD 7. Family history of breast cancer in her maternal grandmother, mother and her daughter. Patient gets yearly mammograms. PLAN PT for gait stability OT for ADL's ST for evaluation Analgesics as needed Bowel protocol Fall precautions Assess for Anxiety/Depression - was on Zoloft in the past and made her cry all the time. GI prophylaxis with Pepcid DVT prophylaxis with enoxaparin Follow up with neurology following DC from IP Rehab ASA and PLAvix for 1 month and then DC the Plavix and continue lifelong ASA Monitor the BP closely - goal is less than 120/80 Goal LDL is less than 70. Needs a lipid panel and a liver panel in 6 weeks. We discussed the side effects of high dose statins and she will let me know if she has increasing muscle or joint pain. She does have palpitations. The etiology of posterior circulation strokes is frequently arterial dissection or thrombus. It may be beneficial to obtain a 30-day event monitor at discharge to look for atrial fibrillation given the fact that she has palpitations. She does not list a PCP and will need to get her set up with a PCP prior to DC. Inpatient E&M: 48458 Init Hosp L3
[2019-12-02] MEDS: Famotidine 20 MG Tablet PO (09:12)
[2019-12-02] MEDS: Clopidogrel Bisulfate 75 MG Tablet PO (09:12)
[2019-12-02] MEDS: Aspirin 81 MG TAB.CHEW PO (09:12)
[2019-12-02 09:29] VITALS: BP 124/68; PULSE 64; RESP 14; TEMP 36.7; O2SAT 95
--- NOTE | 2019-12-02 09:52 | REHABEVAL_ITS ---
Admission Information Primary Diagnosis:: Debility secondary to left thalamic ischemic CVA Status Changes from Prescreening?: No changes Identified Actual Problem List:: Alteration in Sleep, Mobility Impaired, Alteration-Leisure Activ. Potential Problem List:: DVT, Bleeding, Infection, UTI, Aspiration, Falls, Skin Integrity, Depression Risk of Complications DVT: LMWH, SILVESTRE Hose Bleeding: Monitor Lab Values, Nursing to Teach Precautions for anti-coagulation therapy., Wound, if applicable, to be assessed every shift., Stroke patients assessed for lethargy or change in status. Infection: Clinical Staff to Monitor for S/S of infection:, S/S of infection include fever, redness, warmth, etc. Urinary Tract Infection: Monitor for frequency, burning, discomfort, or incontinence., Nursing will obtain urine sample for urinalysis and C&S when ordered. Aspiration: Clinical staff will monitor for coughing, drooling, congestion., Speech will evaluate swallowing and dsyphasia., Nursing will monitor patient swallowing during meals. Falls: Patient will be evaluated for Fall Precautions, Patient will be placed on Fall Precautions as indicated per protocol. Skin Breakdown: Nursing will assess skin daily using assessment tool., Nursing will place on Skin Breakdown Precautions as indicated. Pain: Clinical staff will assess patient's pain level per protocol., Medications will be given, if needed, and the pain level reassessed., Other methods: Massage, distraction, decrease stimulus, etc. used PRN. Plan of Care Patient requires physician specializing in physical medicine and rehab oversight to provide close medical supervision of rehab issues including: Pain Management, Sleep Problems, Bowel and Bladder, Medical and co-morbidity Management, DVT prophylaxis, Rehabilitation Leadership, Coordination of treatment team Patient needs Physical Therapy: For a minimum of 1 hour, At least 5 out of 7 days Patient needs Physical Therapy to improve:: Mobility, Mobility, Mobility, Strengthening, Transfers, Stretching, ROM, Endurance, Stairs, Gait, Balance Patient needs Occupational Therapy: For a minimum of 1 hour, At least 5 out of 7 days Patient needs Occupational Therapy to improve ADL's incl.: Eating, Grooming, Bathing, Dressing, Toileting, Toilet transfers, Community Reintegration, Higher functioning activities, Household tasks, Adaptive Equipment, Splinting, Other activities as determined Patient requires speech therapy: For a minimum of 1 hour, At least 5 out of 7 days Patient requires speech therapy for: Swallowing, Cognition, Language Skills, Compensatory Strategies Patient requires 24/7 Rehabilitation Nursing for: Pain Issues, Identifying and preventing risk factors, Monitoring and reporting current medical conditions, Assisting with ambulation, transfer, and all ADL's, Teaching patients about disease process and medications, Family teaching, Providing safe environment, Bowel and Bladder Issues, Skin integrity, Medication Management Patient needs Manufacturing Project Engineer/ Case Management for: Discharge Planning, Arranging Home Equipment or Services, Family Interventions Patient needs Dietary and Nutrition Services for: Adequate Nutrition, Nutritional Supplements, Nutritional Education Goals Patient will remain: free from falls, or injury at time of discharge. Patient will perform bed mobility at: MOD I level of assist. Patient will complete transfers from bed to chair at: MOD I level of assist. Patient will ambulate: 100 feet, with MOD I assist, with LRD Patient will complete upper body dressing at: MOD I level of assist. Patient will complete lower body dressing at: MOD I level of assist. Patient will complete toileting at: MOD I level of assist. Patient will perform bathing at: MOD I level of assist. Patient will complete grooming at: MOD I level of assist. Patient will complete home management skills at: MOD I level of assist. Patient will achieve: 12 stairs, at MOD I assist Patient will have pain level of: of 3 or less Patient's skin will: remain intact, free from infection. Patient will receive: adequate nutrition. Discharge Planning Pt Prognosis for Sig. Practical Improv. w/in Reasonable Time: Good Estimated Length of stay (days): 14 Anticipated D/C Destination: Home
--- NOTE | 2019-12-02 17:12 | NURSING ---
Dr Corral made aware of elevated BP this afternoon. New orders received.
[2019-12-02] MEDS: Atenolol 25 MG Tablet PO (19:05)
[2019-12-02 19:37] VITALS: BP 179/89; PULSE 69; RESP 18; TEMP 36.8; O2SAT 100
[2019-12-02] MEDS: Senna/Docusate Sodium 1 Tablet 2 TABLET PO (20:03)
[2019-12-02] MEDS: Atorvastatin Calcium 80 MG Tablet PO (20:04)
[2019-12-03] MEDS: Enoxaparin 40 MG/0.4 ML Syringe SC (06:55)
[2019-12-03 09:22] VITALS: BP 138/70; PULSE 57; RESP 16; TEMP 36.5; O2SAT 97
[2019-12-03] MEDS: Famotidine 20 MG Tablet PO (10:08)
[2019-12-03] MEDS: Aspirin 81 MG TAB.CHEW PO (10:08)
[2019-12-03] MEDS: Clopidogrel Bisulfate 75 MG Tablet PO (10:08)
[2019-12-03] MEDS: Senna/Docusate Sodium 1 Tablet 2 TABLET PO ×2 (10:10→22:31)
[2019-12-03 10:20] VITALS: BP 150/86; PULSE 57
[2019-12-03] MEDS: LORazepam 1 MG Tablet PO (12:40)
[2019-12-03 13:40] VITALS: BP 115/71; PULSE 77
[2019-12-03 19:36] VITALS: BP 124/61; PULSE 67; RESP 14; TEMP 36.8; O2SAT 95
[2019-12-03] MEDS: Atenolol 25 MG Tablet PO (22:31)
[2019-12-03] MEDS: Atorvastatin Calcium 80 MG Tablet PO (22:31)
[2019-12-03] MEDS: busPIRone 5 MG Tablet PO (22:31)
[2019-12-04] MEDS: Enoxaparin 40 MG/0.4 ML Syringe SC (06:07)
[2019-12-04 08:31] VITALS: O2SAT 95
[2019-12-04] MEDS: Clopidogrel Bisulfate 75 MG Tablet PO (09:15)
[2019-12-04] MEDS: busPIRone 5 MG Tablet PO ×2 (09:15→21:22)
[2019-12-04] MEDS: Aspirin 81 MG TAB.CHEW PO (09:15)
[2019-12-04] MEDS: Famotidine 20 MG Tablet PO (09:15)
[2019-12-04] MEDS: Senna/Docusate Sodium 1 Tablet 2 TABLET PO (09:15)
[2019-12-04 09:47] VITALS: BP 113/58; PULSE 61; RESP 16; TEMP 37.1; O2SAT 95
[2019-12-04] MEDS: Atorvastatin Calcium 80 MG Tablet PO (21:22)
[2019-12-04] MEDS: Atenolol 25 MG Tablet PO (21:23)
--- NOTE | 2019-12-04 21:49 | NURSING ---
upon giving hs meds and doing assessment, pt asking questions regarding medications. pt medications explained and this nurse offered Jc info for patient. pt agrees to read over education and give to daughter for education as well. pt seems to be more at ease and thankful. note left for dr baeza regarding pt concern for lipitor dose.
[2019-12-04 22:00] VITALS: BP 129/74; PULSE 65; RESP 16; TEMP 36.4; O2SAT 99
[2019-12-05] MEDS: Enoxaparin 40 MG/0.4 ML Syringe SC (06:21)
[2019-12-05] MEDS: Clopidogrel Bisulfate 75 MG Tablet PO (08:01)
[2019-12-05] MEDS: busPIRone 5 MG Tablet PO ×2 (08:01→20:51)
[2019-12-05] MEDS: Aspirin 81 MG TAB.CHEW PO (08:02)
[2019-12-05] MEDS: Famotidine 20 MG Tablet PO (08:02)
[2019-12-05 09:16] VITALS: BP 121/63; PULSE 64; RESP 18; TEMP 36.4; O2SAT 94
--- NOTE | 2019-12-05 11:49 | CASEMGMT ---
Social Work IDT met with patient and daughter via conference call for Team Meeting. Discussed patient's progress in therapy. Pt is sup. edge of bed, SBA sit to stand, balance improved and can now walk without a device CGA 165 ft, competed 5 steps with 1 HR min assist. Pt is SBA for all ADLs, improving on right arm coordination. Pt started on antianxiety medication as pt had high blood pressure when anxious and the blood pressure medications were not effective. Physician also ordered a 30-day heart monitor at DC to detect if pt has afib. Pt will DC home with and dtr support. can assist with light assistance at home. Explained insurance update 12/04 and continued stay is not guaranteed. Pt agreeable to outpatient PT/OT and requested [facility]. No DME needs. Will ReTeam next week. Will continue to follow. MONSERRAT HigginsW
--- NOTE | 2019-12-05 11:56 | PN_ITS ---
Progress Note Mary was seen on team rounds today. Her daughter participated in a conference call with the team. Afebile VSS-blood pressure is well controlled now. Adding Buspar to the drug regimen seems to have helped with BP control. Blood pressures have ranged from 115/71- 129/74 over the past 36 hours. She was started on BuSpar on 12/03/2019. Maintaining appropriate oxygen saturation on RA Oral intake is fair Discussed with nursing - no problems that need addressed Reviewed the PT/OT notes - she is doing very well and walked without an AD to day. TUG in 18 sec today down from 34 at admission. Medication list reviewed. She is complaining of frequent loose stool and request that the stool softeners be discontinued. She has also been eating a sugar substitute which possibly contributes. I showed her on the menu where she can order sugar rather than a substitute. Alert, oriented x3, sitting in the recliner at the bedside, no apparent distress, very pleasant Lungs-good air exchange, clear to auscultation Heart-regular rate and rhythm, no murmur, no gallop Abdomen-soft, nondistended, bowel sounds are not hyperactive, no guarding with palpation No peripheral edema, no calf tenderness No rashes and no breakdown Impressions 1. Debility post left thalamic ischemic CVA 2. Diarrhea-more likely than not secondary to stool softeners plus/minus IBS 3. Anxiety leading to elevated blood pressures-better with the addition of BuSpar to her drug regimen 4. Hypertension-controlled 5. Dyslipidemia Discontinue stool softeners. Continue BuSpar 5 mg p.o. twice daily. We will continue this at discharge to help control her anxiety. I suspect that she has hypertension when she is anxious more often than she suspects. Blood pressure came under good control with the addition of med to control the anxiety she has chronically, she has not done well with sertraline in the past. 30 day event monitor at VT to r/o PAF as etiology of L thalamic CVA We discussed decreasing the dose of the Atorvastatin however I explained that The recommendations for pts with CVA's is to use a high intensity statin. She has no complaints of muscle pain now. Will continue the high intensity statin and have a lipid panel and a liver panel in 4-6 weeks and then her PCP can make the decision on whether decreasing the Atorvastatin is appropriate. If she experiences muscle pain will decrease the dose to 40 mg. The goal is an LDL of 70 or less. STROKE Vital Signs/Narrative: Vital Signs Temp Pulse Resp BP Pulse Ox 12/05/19 09:16 97.6 F L 64 18 121/63 H 94 Inpatient E&M: 45137 Subs Hosp L2
[2019-12-05 20:15] VITALS: BP 115/75; PULSE 90; RESP 16; TEMP 36.4; O2SAT 95
--- NOTE | 2019-12-05 20:37 | NURSING ---
Text sent to Hospitalist, Ed Cox, re: pt c/o indigestion. N/O for 1-2 tabs Tums Q4H PRN.
[2019-12-05 20:39] VITALS: BMI 25.7
[2019-12-05] MEDS: Calcium Carbonate 500 MG Tablet PO (20:47)
[2019-12-05] MEDS: Atenolol 25 MG Tablet PO (20:51)
[2019-12-05] MEDS: Atorvastatin Calcium 80 MG Tablet PO (20:51)
[2019-12-06] MEDS: Calcium Carbonate 500 MG Tablet PO ×2 (03:13→21:44)
[2019-12-06] MEDS: Enoxaparin 40 MG/0.4 ML Syringe SC (06:02)
[2019-12-06] MEDS: Famotidine 20 MG Tablet PO (08:38)
[2019-12-06] MEDS: Clopidogrel Bisulfate 75 MG Tablet PO (08:38)
[2019-12-06] MEDS: busPIRone 5 MG Tablet PO ×2 (08:38→21:42)
[2019-12-06] MEDS: Aspirin 81 MG TAB.CHEW PO (08:38)
[2019-12-06 10:00] VITALS: BP 118/69; PULSE 54; RESP 16; TEMP 36.4; O2SAT 94
[2019-12-06 15:26] VITALS: BMI 25.7
[2019-12-06 19:47] VITALS: BP 123/74; PULSE 60; RESP 18; TEMP 36.5; O2SAT 96
[2019-12-06] MEDS: Atorvastatin Calcium 80 MG Tablet PO (21:42)
[2019-12-06] MEDS: Atenolol 25 MG Tablet PO (21:43)
[2019-12-06 21:51] VITALS: BMI 25.7
[2019-12-07] MEDS: Enoxaparin 40 MG/0.4 ML Syringe SC (05:50)
[2019-12-07] MEDS: Clopidogrel Bisulfate 75 MG Tablet PO (08:23)
[2019-12-07] MEDS: Aspirin 81 MG TAB.CHEW PO (08:23)
[2019-12-07] MEDS: Famotidine 20 MG Tablet PO ×2 (08:23→21:00)
[2019-12-07] MEDS: busPIRone 5 MG Tablet PO ×2 (08:23→21:00)
[2019-12-07 09:25] VITALS: BP 110/60; PULSE 58; RESP 17; TEMP 36.4; O2SAT 97
--- NOTE | 2019-12-07 11:09 | PCM.PN.BLA ---
Progress Note Afebile VSS-blood pressure is well controlled and over the past 2 days has ranged from 110/62 121/63. Maintaining appropriate oxygen saturation on RA Oral intake is good Discussed with nursing - no problems that need addressed Reviewed the PT/OT notes Medication list reviewed. Diarrhea has resolved with discontinuation of stool softeners Sleeping well now with the ear plugs to block the noise from the HVAC return Denies muscle pain Alert, oriented x3 Lungs-clear to auscultation Heart-regular rate and rhythm, no murmur, no gallop Abdomen nontender to palpation No peripheral edema, no calf tenderness Still using an assistive device for ambulation Impressions 1. Postop debility secondary to left thalamic ischemic CVA on 11/30/2019 2. Hypertension-blood pressure is very sensitive to any anxiety 3. Anxiety-continue BuSpar 5 mg p.o. twice daily 4. Loose stool-resolved with discontinuation of stool softeners. Continue therapy STROKE Vital Signs/Narrative: Vital Signs Temp Pulse Resp BP Pulse Ox 12/07/19 09:25 97.6 F L 58 L 17 110/60 97 Inpatient E&M: 84367 Subs Hosp L1
[2019-12-07 15:30] VITALS: BMI 25.7
[2019-12-07] MEDS: Acetaminophen 325 MG Tablet 650 MG PO (18:07)
[2019-12-07 20:50] VITALS: BP 126/74; PULSE 68; RESP 16; TEMP 36.4; O2SAT 98; BMI 25.7
[2019-12-07] MEDS: Atenolol 25 MG Tablet PO (21:00)
[2019-12-07] MEDS: Atorvastatin Calcium 80 MG Tablet PO (21:00)
[2019-12-08] MEDS: Enoxaparin 40 MG/0.4 ML Syringe SC (05:25)
[2019-12-08 09:26] VITALS: BP 119/67; PULSE 58; RESP 16; TEMP 36.6; O2SAT 97
[2019-12-08] MEDS: Clopidogrel Bisulfate 75 MG Tablet PO (10:39)
[2019-12-08] MEDS: Famotidine 20 MG Tablet PO ×2 (10:39→22:03)
[2019-12-08] MEDS: busPIRone 5 MG Tablet PO ×3 (10:39→21:53)
[2019-12-08] MEDS: Aspirin 81 MG TAB.CHEW PO (10:39)
--- NOTE | 2019-12-08 12:01 | PCM.PN.BLA ---
Progress Note Afebile VSS-blood pressure is very well controlled. Maintaining appropriate oxygen saturation on RA Oral intake is good Discussed with nursing - no problems that need addressed Reviewed the PT/OT notes Medication list reviewed. Date of last bowel movement 12/07/2019. Diarrhea has resolved. Heartburn is much better with increasing the famotidine to twice daily. She is complaining of some sinus pressure and this is the time of year when she generally needs to take an antihistamine. She has taken Claritin-D in the past however I told her I would prefer plain Claritin since the decongestant increases blood pressure. She is agreeable to this. She states her anxiety is controlled at this time however, she feels it will likely increase when she goes home. She is agreeable to increasing the BuSpar to 3 times daily. Denies cough, shortness of breath, chest pain, nausea/vomiting, abdominal pain, dysuria. Alert, oriented x3, sitting in the recliner at the bedside, no apparent distress, very pleasant Lungs-good air exchange, clear to auscultation Heart-regular rate and rhythm, no murmur, no gallop Abdomen-soft, nondistended, bowel sounds are not hyperactive, no guarding with palpation No peripheral edema, no calf tenderness No rashes and no breakdown Impressions 1. Debility post left thalamic ischemic CVA, has made wonderful progress in therapy. 2. Diarrhea-more likely than not secondary to stool softeners plus/minus IBS. Diarrhea resolved with discontinuation of stool softeners 3. Anxiety leading to elevated blood pressures-better with the addition of BuSpar to her drug regimen. Increase the BuSpar to 5 mg 3 times daily as she suspects her anxiety will increase when she goes home. 4. Hypertension-controlled with the addition of anxiety control to her antihypertensive regimen 5. Dyslipidemia -on high intensity statin. She is not complaining of any muscle pain. CMP and lipid panel in the a.m. Continue therapy Start Claritin 10 mg p.o. nightly Increase BuSpar to 5 mg 3 times daily. STROKE Vital Signs/Narrative: Vital Signs Temp Pulse Resp BP Pulse Ox 12/08/19 09:26 98 F 58 L 16 119/67 97 Inpatient E&M: [id number] Subs Hosp L2
[2019-12-08 15:49] VITALS: BMI 25.7
[2019-12-08] MEDS: Acetaminophen 325 MG Tablet 650 MG PO (17:00)
[2019-12-08] MEDS: Loratadine 10 MG Tablet PO (21:53)
[2019-12-08] MEDS: Atenolol 25 MG Tablet PO (21:53)
[2019-12-08] MEDS: Atorvastatin Calcium 80 MG Tablet PO (21:53)
[2019-12-08 22:00] VITALS: BP 115/57; PULSE 98; RESP 16; TEMP 36.7; O2SAT 95; BMI 25.7
[2019-12-09] MEDS: Enoxaparin 40 MG/0.4 ML Syringe SC (05:49)
[2019-12-09] MEDS: busPIRone 5 MG Tablet PO ×3 (05:49→22:41)
--- NOTE | 2019-12-09 06:33 | NURSING ---
pt became light headed after blood being drawn and had an 100cc of green emesis. pt reports feeling better after vomiting, luis a mary and soda crackers.
[2019-12-09 07:10] LABS: ALB/GLOB Ratio 1.1 RATIO (0.9-2.4); AST(SGOT) 24 U/L (15-37); Alanine Aminotransfer ALT/SGPT 43 U/L (13-56); Albumin, Serum 3.7 g/dL (3.2-5.0); Alkaline Phosphatase 84 U/L (45-117); Anion Gap 4 (5-15); BUN 17 mg/dL (7-18); BUN/Creat Ratio 20.9 RATIO (10-20); Calcium,Total 8.8 mg/dL (8.5-10.1); Chloride 106 mmol/L (98-107); Cholesterol 145 mg/dL (200); Creatinine, Serum 0.81 mg/dL (0.55-1.02); EST Glomerular Filtration Rate 75 mL/min (>60); Est Glom Filt Rate - Afr Amer 91 mL/min (>60); Estimated Creatinine Clearance 63.96 ml/min; Globulin 3.5 g/dL (2.2-4.2); Glucose 104 mg/dL (74-106); High Density Lipoprotein 58 mg/dL; Potassium 3.8 mmol/L (3.5-5.1); Protein, Total 7.2 g/dL (6.4-8.2); Sodium Level 139 mmol/L (136-145); Triglycerides 71 mg/dL; Very Low Density Lipoprotein 14 mg/dL (5-40)
[2019-12-09] MEDS: Aspirin 81 MG TAB.CHEW PO (07:51)
[2019-12-09] MEDS: Famotidine 20 MG Tablet PO ×2 (07:51→22:41)
[2019-12-09] MEDS: Clopidogrel Bisulfate 75 MG Tablet PO (07:51)
[2019-12-09 08:22] VITALS: BP 102/53; PULSE 61; RESP 16; TEMP 36.7; O2SAT 95
--- NOTE | 2019-12-09 08:22 | PCM.PN.BLA ---
Progress Note Afebrile Blood pressure is well controlled Maintaining appropriate oxygen saturation on room air Reviewed the CMP from today. BUN is 17 and the creatinine is 0.81. Potassium is 3.8. LFTs are normal. Glycerides are 71 with cholesterol of 145, LDL of 73 and an HDL of 58. discussed the results with Mary. She denies muscle pain and has no RUQ tenderness on exam. She is starting to feel anxious about going home and is not sleeping as well at night. We discussed increasing the Buspar to 5 mg TID and she is agreeable to this. Alert, no apparent distress, oriented x3, pleasant, talkative Lungs-clear to auscultation with excellent air exchange Heart-regular rate and rhythm, no gallop, no murmur, no ectopy Abdomen-soft, nontender, nondistended, bowel sounds present, no guarding with palpation No peripheral edema, no calf tenderness Impressions 1. Debility secondary to recent left thalamic ischemic CVA 2. Hypertension-controlled 3. Anxiety-improved with BuSpar twice daily but patient is starting to feel anxious about going home and is not sleeping well. BuSpar has been increased to 5 mg 3 times daily and will assess her response over the next few days prior to discharge 4. Dyslipidemia Inpatient E&M: [id number] Subs Hosp L1
[2019-12-09 12:33] VITALS: BMI 25.7
--- NOTE | 2019-12-09 16:13 | CASEMGMT ---
Social Work Spoke with patient about insurance issuing DC date 12/11. Pt agreeable. Pt still requests [facility] PT/OT. No DME needs. Referral made. Plan: DC home with 12/11 [facility] PT/OT MONSERRAT HigginsW
[2019-12-09 22:00] VITALS: BP 138/74; PULSE 62; RESP 16; TEMP 36.8; O2SAT 96
[2019-12-09] MEDS: Atenolol 25 MG Tablet PO (22:41)
[2019-12-09] MEDS: Atorvastatin Calcium 80 MG Tablet PO (22:41)
[2019-12-09] MEDS: Loratadine 10 MG Tablet PO (22:41)
[2019-12-10 01:32] VITALS: BMI 25.7
[2019-12-10] MEDS: Enoxaparin 40 MG/0.4 ML Syringe SC (06:42)
[2019-12-10] MEDS: busPIRone 5 MG Tablet PO ×3 (06:42→22:44)
[2019-12-10 08:00] VITALS: BP 103/63; PULSE 62; RESP 16; TEMP 36.7; O2SAT 100
[2019-12-10] MEDS: Clopidogrel Bisulfate 75 MG Tablet PO (08:57)
[2019-12-10] MEDS: Aspirin 81 MG TAB.CHEW PO (08:57)
[2019-12-10] MEDS: Famotidine 20 MG Tablet PO ×2 (08:58→22:44)
[2019-12-10 16:03] VITALS: BMI 25.7
[2019-12-10 22:35] VITALS: BP 128/68; PULSE 72; RESP 18; TEMP 36.6; O2SAT 95
[2019-12-10] MEDS: Atorvastatin Calcium 80 MG Tablet PO (22:44)
[2019-12-10] MEDS: Atenolol 25 MG Tablet PO (22:44)
[2019-12-10] MEDS: Loratadine 10 MG Tablet PO (22:44)
[2019-12-11 02:18] VITALS: BMI 25.7
[2019-12-11] MEDS: Enoxaparin 40 MG/0.4 ML Syringe SC (06:23)
[2019-12-11] MEDS: busPIRone 5 MG Tablet PO ×3 (06:23→22:03)
[2019-12-11] MEDS: Clopidogrel Bisulfate 75 MG Tablet PO (08:06)
[2019-12-11] MEDS: Aspirin 81 MG TAB.CHEW PO (08:06)
[2019-12-11] MEDS: Famotidine 20 MG Tablet PO ×2 (08:07→22:03)
[2019-12-11 10:00] VITALS: BP 119/73; PULSE 69; RESP 18; TEMP 36.8; O2SAT 96
[2019-12-11 14:22] VITALS: BMI 25.7
[2019-12-11 22:00] VITALS: BP 129/73; PULSE 65; RESP 18; TEMP 37; O2SAT 98
[2019-12-11] MEDS: Atorvastatin Calcium 80 MG Tablet PO (22:03)
[2019-12-11] MEDS: Loratadine 10 MG Tablet PO (22:03)
[2019-12-11] MEDS: Atenolol 25 MG Tablet PO (22:03)
[2019-12-12] MEDS: busPIRone 5 MG Tablet PO (06:53)
[2019-12-12] MEDS: Enoxaparin 40 MG/0.4 ML Syringe SC (06:53)
[2019-12-12] MEDS: Clopidogrel Bisulfate 75 MG Tablet PO (08:25)
[2019-12-12] MEDS: Aspirin 81 MG TAB.CHEW PO (08:25)
[2019-12-12] MEDS: Famotidine 20 MG Tablet PO (08:25)
[2019-12-12 08:49] VITALS: BP 94/58; PULSE 59; RESP 16; TEMP 36.4; O2SAT 98
--- NOTE | 2019-12-12 11:26 | PCM.DC ---
- Discharge Diagnoses Current Active Problems: Current Active and Chronic Problems Physical debility (Acute) due to ischemic L thalamic CVA on 11/30/2019 GERD (gastroesophageal reflux disease) (Chronic) Anxiety (Chronic) Hyponatremia (Acute) Dyslipidemia (Chronic) Ischemic cerebrovascular accident (CVA) (Acute) Left thalamus on 11/30/2019 Grade I diastolic dysfunction (Chronic) You will use the following diet at home:: Cardiac - low salt and low fat Your food should be the consistency of: Regular Your liquids should be the consistency of: Regular/Thin Discharge Activity: No Restrictions, - - do the exercises given to you by the therapists at least once a day, preferably 2 times a day. May resume sexual activity in: No Restrictions Weight Bearing Status: Full weight bearing Lifting Restrictions: 10 lbs No heavy weights during exercise because it increases BP transient Call your doctor if you observe: Fever of 101 or Higher, Numbness or Tingling, Inability to have a bowel movement, Shortness of breath, Dizziness, Fainting spells, Swelling in the ankles, Chest pain, Increased palpitations (irregular heartbeat), Calf discomfort, Uncontrolled pain Instructions: Your Body's Response to Anxiety, Treating Anxiety Disorders with Therapy, Understanding Anxiety Disorders, Treating Anxiety Disorders with Medication Additional Instructions: 1. I suspect that you have had high BP for a while now. The ECHO (ultrasound of the heart) shows that the heart does not relax as well as it should and this happens with uncontrolled high BP. While you were in the rehab unit the BP went up to 179/89 and stayed there until we gave you a medication to relieve anxiety. You were started on a medication called Cesia in the hospital and you are taking it 3 times a day. This med is for anxiety control. It is a non-addictive drug and you have been tolerating this medication without any adverse reactions. We are going to continue this medication at Discharge. It only works if you take it as directed.....it will not work if you just take it when you feel anxious. 2. Take all your meds as instructed. If you have questions call [phone] and someone will help you. 3. You will take 2 antiplatelet drugs for a period of 1 month....Aspirin and Clopidogrel (also called Plavix). Finish the Clopidogrel and then you will only take Aspirin 81 mg daily......for the rest of your life. 4. You are on a high dose of Atorvastain(Lipitor) to control the cholesterol. This medication can cause muscle pain and on rare occasions elevated liver enzymes. I checked the liver enzymes recently and they were normal. The LDL, the bad cholesterol, was 73 and the goal is < 70. The HDL, which is the good cholesterol which is protective of the heart, was 58 and this is very good. Exercise helps to keep the HDL high and you should continue your exercise program. 5. It has been a pleasure caring for you Mary and you have done very well in therapy. You will continue to improve in therapy at [facility]. Take care of yourself and hopefully you will not need our services in the future BUT, if you do we would be happy to take care of you again. My cell is [phone] and my office phone is [phone]. Call if you have questions.......before 10 PM please. Pending Tests on Discharge: none Allergies/Adverse Reactions: Allergies No Known Allergies Allergy (Verified 11/30/19 03:02) Medications to take at Discharge Aspirin [Aspirin, Baby] 81 mg PO DAILY@0800 12/01/19 Acetaminophen [Tylenol Tablet] 650 mg PO Q6H PRN PRN tablet 12/12/19 Atenolol [Tenormin (beta leonel)] 25 mg PO QHS #30 tab 12/12/19 Atorvastatin Calcium [Lipitor] 80 mg PO QHS #30 tab 12/12/19 Calcium Carbonate [Tums] 500 mg PO BIDCM #1 tablet 12/12/19 Clopidogrel Bisulfate [Plavix] 75 mg PO DAILY #19 tab 12/12/19 Famotidine [Pepcid AC] 20 mg PO BID #60 tab 12/12/19 Loratadine [Claritin] 10 mg PO QHS #30 tab 12/12/19 busPIRone [Buspar] 5 mg PO TID #90 tab 12/12/19 The following prescriptions were given: busPIRone [Buspar] 5 mg PO TID #90 tab Transmission Status: Pending to [facility] Loratadine [Claritin] 10 mg PO QHS #30 tab Transmission Status: Pending to [facility] Atorvastatin Calcium [Lipitor] 80 mg PO QHS #30 tab Transmission Status: Pending to [facility] Famotidine [Pepcid AC] 20 mg PO BID #60 tab Transmission Status: Pending to [facility] Clopidogrel Bisulfate [Plavix] 75 mg PO DAILY #19 tab Prescription Printed Atenolol [Tenormin (beta leonel)] 25 mg PO QHS #30 tab Transmission Status: Pending to [facility] Primary Care Physician: Care Physician,No Primary [Primary Care Provider] - Test Results: Test results from this visit will be discussed in further detail at your follow-up appointment, if applicable. Please Follow Up With: Maira Tim MD When: 7-10 days Please Follow Up With: neurology When: Within the month
--- NOTE | 2019-12-12 12:03 | PCM.DC.SUM ---
Discharge Date and Diagnosis - Problem List Patient Problems: Active and Suspected Problems Physical debility (Acute) due to ischemic L thalamic CVA on 11/30/2019 Ischemic cerebrovascular accident (CVA) (Acute) Left thalamus on 11/30/2019 Date of Admission: 12/01/19 Date of Discharge: 12/12/19 - Primary Discharge Diagnosis Active and Suspected Problems Physical debility (Acute) due to ischemic L thalamic CVA on 11/30/2019 Ischemic cerebrovascular accident (CVA) (Acute) Left thalamus on 11/30/2019 Hyponatremia-resolved - Secondary Discharge Diagnosis Chronic Problems GERD (gastroesophageal reflux disease) (Chronic) Anxiety (Chronic)-controlled with BuSpar 5 mg 3 times daily Dyslipidemia (Chronic) Grade I diastolic dysfunction (Chronic) Hospital Course and Treatment Imaging Results: cc: No Primary Care Physician; Vito Gee MD ~* Signed ADDENDUM by Rigo Bruno MD on 11/30/19 at 1226 MRI/Brain without Contrast IMPRESSION: 1 cm acute infarct of the lateral aspect of the left thalamus. Echocardiogram-11/30/2019 The estimated ejection fraction is 65% Stage I diastolic dysfunction Bubble contrast study negative for right to left interatrial shunt Unable to estimate RV systolic pressure due to insufficient tricuspid regurgitant envelope Trivial aortic valve insufficiency 12/09/2019 Total cholesterol 145 LDL cholesterol 73 VDL cholesterol 14 HDL cholesterol 58 Normal LFTs ADDENDUM by Leandra Coyle MD on 11/30/[address]/CTA Head AND Neck W/ Contrast IMPRESSION: Mild calcified atherosclerotic disease involving the aortic arch and cavernous portion of the bilateral internal carotid arteries. Otherwise unremarkable CTA Head and neck with contrast. none Operations: None Procedures: 2-D Echocardiogram Summary of Care Provided: Mary Cole is a 64 year old F with a past medical history of GERD who presented to the [facility] emergency department on 11/30/2019 complaining of right side numbness and weakness with slurred speech. Symptoms were not present when she went to bed but were present in the a.m. and the time of onset could not be determined. She was not given TPA. Initial CT scan of the head without contrast showed white matter disease but no stroke. MRI of the brain showed a 1 cm left thalamic infarct. Echocardiogram showed stage I diastolic dysfunction with an EF of 65% and no significant valvular heart disease. There was no PFO or other evidence of a right to left shunt. MRI showed a 1 cm left thalamic ischemic CVA. CTA of the head and neck showed mild calcified atherosclerotic disease involving the aortic arch and cavernous portion of the bilateral internal carotid arteries but was otherwise unremarkable. Tele-neurology was consulted and they recommended high-dose statin, aspirin and Plavix for 1 month and then discontinue Plavix but continue lifelong aspirin. She was transferred to the inpatient rehab unit at [facility] on 12/01/2023 greater than 3 hours of therapy daily to restore her to her prior level of independence. Prior to the stroke she was independent with all ADLs and driving. She was not on an anti-hypertensive prior to the CVA. She was started on Atenolol while in the hospital. We noticed in rehab that she was quite anxious at times and the BP increased to 179/89 and stayed there until she was given 1 mg of PO Ativan and the BP returned to a normal level. She had been on a SSRI but, did not tolerate it due to adverse side effects. She was initially started on BuSpar 5 mg twice daily and this was helpful. She had no adverse drug reactions. A few days prior to going home she started to feel more anxious which affects her sleep as well as causes her blood pressure to go up. The BuSpar was increased to 3 times daily and she tolerated this dose well and felt it helped with better anxiety relief. She was started on a high intensity statin, 80 mg of atorvastatin nightly, during the acute hospital stay and this was continued in rehab. She had no complaints of muscle pain. A CMP was obtained on 12/09/2019 which was 9 days after being started on atorvastatin and the LFTs were normal and the cholesterol was 145 with an LDL of 73 and an HDL of 58. She exercises regularly at home and has good weight control. Her BMI is 24.2. She did very well in therapy and prior to discharge was ambulating without an assistive device. The vertical nystagmus had resolved. She was discharged home on 12/12/2019 on medications that are listed elsewhere. She will follow-up with Dr. Tino Tim for her regular medical care and an appt was made for her to follow up with a neurologist. The initial visit will be via telemedicine. I recommended she consider psychotherapy to learn to better control the situations that make her anxious and referred her to the [facility] center on [facility] in [facility]. She was given the number of the [facility] and my cell phone number prior to DC and encouraged to call if she had questions. Alert, oriented x3, sitting in the recliner at the bedside, no apparent distress, very pleasant Lungs-good air exchange, clear to auscultation Heart-regular rate and rhythm, no murmur, no gallop Abdomen-soft, nondistended, bowel sounds are not hyperactive, no guarding with palpation No peripheral edema, no calf tenderness No rashes and no breakdown normal tandem gait, CN's II - XII grossly intact, no nystagmus, no slurred speech. This note was generated with [employer] dictation software. It may contain incorrect words, spelling, and punctuation that were not noted in checking the note before signing. Patient Problems: Active and Suspected Problems Physical debility (Acute) due to ischemic L thalamic CVA on 11/30/2019 Ischemic cerebrovascular accident (CVA) (Acute) Left thalamus on 11/30/2019 - Physical Exam Vitals/I&O's: Vital Signs Temp Pulse Resp BP Pulse Ox 97.6 F L 59 L 16 94/58 L 98 12/12/19 08:49 12/12/19 08:49 12/12/19 08:49 12/12/19 08:49 12/12/19 08:49 Oxygen Delivery Method Room Air Weight: 149 lb 11.102 oz Body Mass Index (BMI) 25.7 Finger Stick Blood Glucose 130 Intake and Output for Last 24 Hours 12/10/19 12/11/19 12/12/19 23:59 23:59 23:59 Intake Total 1160 / 1160 1540 / 1540 440 / 440 Output Total 200 / 200 Balance 960 / 960 1540 / 1540 440 / 440 Current Medications Acetaminophen (Tylenol) 650 mg PO Q6H PRN PRN PRN Reason: Pain Score 1-3/10 Last Admin: 12/08/19 17:00 Dose: 650 mg Documented by: Aspirin (Aspirin, Baby) 81 mg PO DAILY@0800 [facility] Last Admin: 12/12/19 08:25 Dose: 81 mg Documented by: Atenolol (Tenormin (Beta Yudy)) 25 mg PO QHS [facility] Last Admin: 12/11/19 22:03 Dose: 25 mg Documented by: Atorvastatin Calcium (Lipitor) 80 mg PO QHS [facility] Last Admin: 12/11/19 22:03 Dose: 80 mg Documented by: Bisacodyl (Dulcolax) 10 mg RECTAL .PRN X 1 PRN PRN Reason: Constipation Buspirone HCl (Buspar) 5 mg PO TID [facility] Last Admin: 12/12/19 06:53 Dose: 5 mg Documented by: Calcium Carbonate (Tums) 500 - 1,000 mg PO Q4H PRN PRN PRN Reason: indigestion Last Admin: 12/06/19 21:44 Dose: 1,000 mg Documented by: Clopidogrel Bisulfate (Plavix) 75 mg PO DAILY [facility] Last Admin: 12/12/19 08:25 Dose: 75 mg Documented by: Enoxaparin Sodium (Lovenox) 40 mg SC DAILY@0600 [facility] Last Admin: 12/12/19 06:53 Dose: 40 mg Documented by: Famotidine (Pepcid) 20 mg PO BID [facility] Last Admin: 12/12/19 08:25 Dose: 20 mg Documented by: Loratadine (Claritin) 10 mg PO QHS [facility] Last Admin: 12/11/19 22:03 Dose: 10 mg Documented by: Magnesium Hydroxide (Milk Of Magnesia) 30 ml PO .PRN X 1 PRN PRN Reason: Constipation Discharge Activity: No Restrictions, - - do the exercises given to you by the therapists at least once a day, preferably 2 times a day. May resume sexual activity in: No Restrictions Weight Bearing Status: Full weight bearing Call your doctor if you observe: Fever of 101 or Higher, Numbness or Tingling, Inability to have a bowel movement, Shortness of breath, Dizziness, Fainting spells, Swelling in the ankles, Chest pain, Increased palpitations (irregular heartbeat), Calf discomfort, Uncontrolled pain Home Medications: Medications to take at Discharge Aspirin [Aspirin, Baby] 81 mg PO DAILY@0800 12/01/19 Acetaminophen [Tylenol Tablet] 650 mg PO Q6H PRN PRN tablet 12/12/19 Atenolol [Tenormin (beta yudy)] 25 mg PO QHS #30 tab 12/12/19 Atorvastatin Calcium [Lipitor] 80 mg PO QHS #30 tab 12/12/19 Calcium Carbonate [Tums] 500 mg PO BIDCM #1 tablet 12/12/19 Clopidogrel Bisulfate [Plavix] 75 mg PO DAILY #19 tab 12/12/19 Famotidine [Pepcid AC] 20 mg PO BID #60 tab 12/12/19 Loratadine [Claritin] 10 mg PO QHS #30 tab 12/12/19 busPIRone [Buspar] 5 mg PO TID #90 tab 12/12/19 Following Prescrptions Were Given to Patient: busPIRone [Buspar] 5 mg PO TID #90 tab Transmission Status: Pending to [facility] Loratadine [Claritin] 10 mg PO QHS #30 tab Transmission Status: Pending to [facility] Atorvastatin Calcium [Lipitor] 80 mg PO QHS #30 tab Transmission Status: Pending to [facility] Famotidine [Pepcid AC] 20 mg PO BID #60 tab Transmission Status: Pending to [facility] Clopidogrel Bisulfate [Plavix] 75 mg PO DAILY #19 tab Prescription Printed Atenolol [Tenormin (beta yudy)] 25 mg PO QHS #30 tab Transmission Status: Pending to [facility] Primary Care Physician: Care Physician,No Primary [Primary Care Provider] - Please Follow Up With: Maira Tim MD When: 7-10 days Please Follow Up With: neurology When: Within the month Patient Instructions: Your Body's Response to Anxiety, Treating Anxiety Disorders with Therapy, Understanding Anxiety Disorders, Treating Anxiety Disorders with Medication Disposition: Home Minutes spent on discharge:: 40 Patient Condition:: Good Medical Necessity - Tobacco Use Smoking Status: Never smoker Tobacco Use: Non-smoker Meaningful Use Info Meaningful Use Diagnoses (Choose all that apply): Ischemic CVA - CVA Therapy Assessed for PT,OT and/or ST?: Yes - Ischemic Stroke Antithrombotic order at d/c?: Yes Dx of Atrial fib/flutter?: No Anticoagulant at discharge?: Yes Reason anticoagulant not ordered: Treatment not Indicated Statins at discharge?: Yes Primary Dx Acute Ischemic CVA?: Yes IV tPA ordered during stay?: No Reason IV t-PA not ordered: Treatment not Indicated Inpatient E&M: [id number] [facility]
[2019-12-12 13:00] VITALS: BP 94/58; PULSE 59; RESP 16; TEMP 36.4; O2SAT 98; BMI 25.7
--- NOTE | 2019-12-12 13:00 | NURSING ---
Discharge to home, patient verbalized understanding to discharge instructions. PCP and Neuro appt made.
== END 2019-12-12 13:00 | disposition home or self-care (01) | DRG 57 ==
PROVIDERS: Admitting Provider Internal Medicine; Referring Provider Internal Medicine; Visit Provider Internal Medicine
DX: I69.351 Hemiplegia and hemiparesis following cerebral infarction affecting right dominant side (principal); I69.398 Other sequelae of cerebral infarction; R20.8 Other disturbances of skin sensation; H55.09 Other forms of nystagmus; R26.89 Other abnormalities of gait and mobility; E78.5 Hyperlipidemia, unspecified; K21.9 Gastro-esophageal reflux disease without esophagitis; I69.328 Other speech and language deficits following cerebral infarction; F41.9 Anxiety disorder, unspecified; F32.9 Major depressive disorder, single episode, unspecified; I10 Essential (primary) hypertension
CPT/HCPCS: 36415; 80053; 80061; 92523; 92610; 97110; 97112; 97116; 97162; 97167; 97530; 97535; 97802; 99251; G0463

== ENCOUNTER → 2020-01-03 13:35 | Outpatient (CLI) | payer MEDICARE, SELFPAY ==
[2019-12-23 14:09] VITALS: BMI 25.7
--- NOTE | 2020-01-03 13:36 | BI_ITS ---
MAMMOGRAPHY - BILATERAL SCREENING REASON FOR EXAM: Female, 64 years old. Routine annual screening examination. PERTINENT HISTORY: Remote right excisional breast biopsy. Daughter with breast cancer. Mother with breast cancer. Aunt with breast cancer. TECHNIQUE: Digital bilateral breast jigar (3D mammographic acquisition) in the CC and MLO projections. 2-D mediolateral oblique (MLO) and craniocaudad (CC) views of both breasts were obtained. CAD: Full Field Digital Mammography with Computer Added Detection was performed. COMPARISON: No comparison mammograms available at this time. If any prior films become available, an addendum to this report can be generated. FINDINGS: Breast Composition: The breasts are heterogeneously dense where the majority of the glandular tissue is in the retroareolar region, which may obscure small masses. There are no dominant masses or suspicious calcifications. Benign-appearing bilateral calcifications. Benign appearing bilateral axillary lymph nodes. No other significant abnormalities are identified. BI/SCREEN MAMM (CAD) W/JIGAR BILAT IMPRESSION: Negative screening mammogram. Yearly followup mammogram recommended. (A) ASSESSMENT CATEGORY: BIRADS Category 2: Benign. A letter regarding these results will be sent to the patient by the facility within 30 days. Approximately 10% of breast cancers are not detected by mammography. A normal mammogram should not delay biopsy of a clinically suspicious abnormality. [id number] Electronically Signed: Declan Khoury, at 9:18 EDT , Service support ,
== END ==
PROVIDERS: PCP Internal Medicine; Referring Provider Internal Medicine; Visit Provider Internal Medicine
DX: Z12.31 Encounter for screening mammogram for malignant neoplasm of breast (principal)
CPT/HCPCS: 77063; 77067

== ENCOUNTER 2020-01-19 14:30 | Outpatient (RCR) | payer MEDICARE, SELFPAY ==
--- NOTE | 2019-12-13 15:16 | HP.OTEVAL_ITS ---
Patient's Visit Information VERONA ARTHUR is a 64 year old F, referred to Occupational Therapy by Norma Corral DO, with a diagnosis of stroke. Date of Evaluation: 12/13/19 Occupational Therapist: Tejal Jon - Subjective Subjective: Pt seen for initial occupational therapy evaluation for stroke that occured November 30 2019. Pt went from hospital acute floor to rehab floor until 12/12/19. R hand dominent. Pt lives w/ spouse split level home 1 step into house, 5 steps 2 handrails into bedroom bathroom, 5 steps downstairs to family room, laundry room. Bathroom walk in shower grab bars and shower seat. Comfort height commodes w/ grab bar. Pt indep w/ BADLs/IADLs, states first night at home did hair and load of laundry carrying laundry basket. Hobbies: gardening, sudoko. Pt states no pain just numbness and tingling R side of body. Pt states always very active and works out frequently at home prior to stroke. - Objective Objective/Observation: pt demo decreased coordination and strength R UE. - ROM ROM Comments: BUE WFL, no range of motion limitations. - Strength Laminating Machine Operator: R38#, L 50# Lateral Pinch: R 10#, L 10# Tripod Pinch: R 6#, L 7# Strength Comments: Generalized MMT R 4/5, L 4/5 - Edema Other: No swelling - Sensation Sensation Comments: Monofilament R 3.22 thumb 2.83 - Nine Hole Peg Right: 34.7 seconds Left: 22.7 seconds - Quick DASH-Disab of Arm,Shoulder& Hand Quick DASH Score: 29.5450 - Goals Goal:: Pt will demo increased R project structural engineer strength by 12# to assist with BADL/IADL tasks independently by d/c from OT Goal:: Pt will be able to write out check and signature legibly with increased coordination by d/c from OT services. Goal:: Pt will be able to complete meal prep tasks independently w/o extra time needed with increased coordination skills by d/c from OT services. Goal:: Pt will decrease nine hole peg test R hand from 34 seconds to 24 seconds by d/c from OT services. Goal:: Pt will be educated on sensory re-integration activities and safety precautions with limited sensation R UE with good understanding and demo 100%x Goal:: Pt will be educated on R hand coordination activities to complete at home w/ good understanding and demo 100%x Goal:: Pt will be educated on R UE HEP with good understanding and demo 100%x - Rehabilitation General Assessment: Pt seen for initial occupational therapy evaluation for stroke that occured 11/30/19 demonstrating decreased R UE coordination and R hand strength indicating a need for skilled OT interventions to increase her R UE strength and R hand coordination skills to return to PLOF and increase her indep w/ BADLs/iADLS tasks w/o extra time needed 1-2x/wk x 4-6wks. Rehabilitation Potential: Good - Anticipated Interventions Anticipated Interventions: Strengthening, Modalities, Joint Protection/Energy Conservation, Fine Motor Coord/Markus, Neuro Reeducation, Sensory Stimulation, ADL Training, Education re Diagnosis, Home Program - Visit Plan Frequency: 1-2x /Week Duration: 4-6 Weeks General Plan: increase R UE strength, coordination, educate on sensory tools/strategies, educate on HEP and coordination activities all to increase indep w/ BADLs/IADL tasks indep 1-2x/wk x 4-6wks TEXT: Thank you for the opportunity to evaluate your patient. For Medicare and Medicare HMO plans, please review the plan of care and approve it. It will need to be FAXED BACK to us at [phone] for Medicare purposes. Please let me know if there are questions or concerns regarding this plan of care. Physician Signature: Date:
--- NOTE | 2019-12-15 07:57 | HP.PTEVAL ---
Patient's Visit Information VERONA ARTHUR is a 64 year old F referred to Physical Therapy by Norma Corral DO with a diagnosis of CVA. Date of Evaluation: 12/13/19 Physical Therapist: Paramjit Somers DPT - Visit Plan Frequency: 2x /Week Duration: 4-6 Weeks Plan: Start with RLE coordination (recipricating movements throughout RLE), progress gait fluidity and confidence. Work on stair negotiation iwth increased RLE control and eccenetric stability. Add in core, quad strength. Focus on quad control esspecially with initial 0-45deg of knee extension ranges for better control with initial contact during gait. - Subjective Pt seen for initial Physical therapy evaluation for stroke that occured November 30 2019. Pt went from hospital acute floor to rehab floor until 12/12/19. R hand dominent. Pt lives w/ spouse split level home 1 step into house, 5 steps 2 handrails into bedroom bathroom, 5 steps downstairs to family room, laundry room. Hobbies: gardening, sudoko. Pt states no pain just numbness and tingling R side of body. Pt states always very active and works out frequently at home prior to stroke. Pt. reports that her R side of marshall body is still botherin her which effects her gait. Pt. is hopeful to get back to all recreational walking including in the near by watters. - Objective POSTURE: Pt. has decent posture in stnace with slight R lateral lean of shoulders. L elevated shoulder, L iliac crest elevated. PALAPTION: No pain with palpation throughout. NEURO: Pt. has feeling of numbness, but do feel like touch thriughout R side. Pt. has slight reduction in R DTR of LEs. ROM: Pt. has good ROM of BLEs and lumbar spine. MMT: Pt. has good strength with manual testing, 4/5 with hip flexion, abduction and IR bilaterally. GAIT: pt. has increased hip rotation to advance RLE. Pt. has reduced stability and activiation of r R quad with initial contact, resulting in slight limp (collapsing down on R side). Pt. has methodical pattern with gait, Above pattern exaggerated with increased tempo no AD. Stairs: Pt. uses 1 HR with slight reduction in controll with descending. - Balance Scores Functional Gait Assessment Score: 20 % Disability: 33.3400 CATSIB Score (Max score 120 seconds): 75 - Goals Goal 1:: LTG: PT. to be I with HEP. Goal Time Frame: 4-6 Weeks Goal 2:: STG: Pt. to have improved posture in stance and gait with reduced R trunk lean. Goal Time Frame: 2-4 Weeks Goal 3:: LTG: Pt. to have normal gait pattern with improved RLE control during initial contact and reduce pelvic rotation to advance RLE. Goal Time Frame: 4-6 Weeks Goal 4:: LTG: Pt. to have imrpoved stair negotiation with increased control and stability with RLE during descending, I with 1 HR. Goal Time Frame: 4-6 Weeks Goal 5:: LTG: Pt. to have increased RLE strength by 1/2 grade throughout. Goal Time Frame: 4-6 Weeks Goal 6:: LTG: Pt. to have incrased FGA to atleast 26/30 indicating reduce risk for future falls. Goal Time Frame: 4-6 Weeks - Rehabilitation Potential Physical Therapy Diagnosis: Pt. has signs and symptoms consistent with CVA resulting in R sided weakness, but her larger problem with her loss of controlled movements and coordination. She presents with okay strength, issues more prevelant with functional mobility. Pt. also has altered gait and stair negotiation. Pt. uses larger hip swing to adance RLE and has decraesed qual controll with initial contact during gait. Pt. would benefit from PT to work on control of movements and to improve gait and functional mobility. Rehabilitation Potential: Excellent - Anticipated Interventions Patient/Client Instruction: Educate patient on: Condition, Plan of Care, Risk Factors, Benefits of Fitness Program For the Purpose of:: To facilitate caregiver knowledge, To improve self management, To prevent re-injury, To improve ability to perform tasks related to life management, To improve tolerance to ADL's Therapeutic Exercise to Include: Strength training, Power training, Endurance training, Balance training, Coordination, Agility training, Body mechanics, Postural training, Flexibilty training, Gait and locomotor training, Neuromotor development, Passive ROM, Active ROM, Dynamic Lumbar Stabilization For the Purpose of:: To decrease pain, To decrease swelling/inflammation, To increase ROM, To improve nutrient delivery to tissue, To increase oxygenation perfusion, To improve muscle performance and motor function, To improve ability to perform ADL's, To increase tolerance to activity/condition/position, To improve performance and independence with ADL's, To decrease level of supervision to perform tasks, To improve ability of physical actions for home/community/work/leisure, To improve gait and locomotor functions, To improve health of tissue, To decrease soft tissue restriction, To increase flexibility/ROM, To improve endurance, To improve balance, To improve safety with gait Thank you for the opportunity to evaluate your patient. For Medicare and Medicare HMO plans, please review the plan of care and approve it. It will need to be FAXED BACK to us at [phone] for Medicare purposes. For Medicare only, by signing this I certify the plan of care. Please let me know if there are questions or concerns regarding this plan of care. Physician Signature: Date:
--- NOTE | 2020-01-29 11:22 | HP.PTREVAL ---
Dr. Norma Corral, DO, It has been my pleasure to treat VERONA ARTHUR over the last 12 visits for CVA. Please see the progress note below for an update on the physical therapy plan of care! Subjective: Pt. reports no issues currently. Pt. reports being close to normal with all over activities. She does report she feel like she walks with a limp at times. Pt. reports being HEP compliant with all activities. No pain noted. Objective/Function: Pt. has good ROM and 5/5 strength throughout BLEs. Pt. ambualtes without AD with good pattern, but with increased tempo she has slight increase in difficulty wtih control of TKE on LLE. Pt. tends to hyper extend her knee at times. FGA 28/30 mild difficulty with eyes closed and narrow BERNADETTE. Plan Plan: Pt. to complete all exercises on her own for 2-3 weeks. Pt to follow back up with PT if not progressing. Pt. consents to plan. Goals Goal 1:: LTG: PT. to be I with HEP. Goal Time Frame: 4-6 Weeks Goal Progress: Goal Met Goal 2:: STG: Pt. to have improved posture in stance and gait with reduced R trunk lean. Goal Time Frame: 2-4 Weeks Goal Progress: Goal Met Goal 3:: LTG: Pt. to have normal gait pattern with improved RLE control during initial contact and reduce pelvic rotation to advance RLE. Goal Time Frame: 4-6 Weeks Goal Progress: Goal Met Goal 4:: LTG: Pt. to have imrpoved stair negotiation with increased control and stability with RLE during descending, I with 1 HR. Goal Time Frame: 4-6 Weeks Goal Progress: Goal Met Goal 5:: LTG: Pt. to have increased RLE strength by 1/2 grade throughout. Goal Time Frame: 4-6 Weeks Goal Progress: Goal Met Goal 6:: LTG: Pt. to have incrased FGA to atleast 26/30 indicating reduce risk for future falls. Goal Time Frame: 4-6 Weeks Goal Progress: Goal Met Anticipated Interventions Patient/Client Instruction: Educate patient on: Condition, Plan of Care, Risk Factors, Benefits of Fitness Program For the Purpose of:: To facilitate caregiver knowledge, To improve self management, To prevent re-injury, To improve ability to perform tasks related to life management, To improve tolerance to ADL's Therapeutic Exercise to Include: Strength training, Power training, Endurance training, Balance training, Coordination, Agility training, Body mechanics, Postural training, Flexibilty training, Gait and locomotor training, Neuromotor development, Passive ROM, Active ROM, Dynamic Lumbar Stabilization For the Purpose of:: To decrease pain, To decrease swelling/inflammation, To increase ROM, To improve nutrient delivery to tissue, To increase oxygenation perfusion, To improve muscle performance and motor function, To improve ability to perform ADL's, To increase tolerance to activity/condition/position, To improve performance and independence with ADL's, To decrease level of supervision to perform tasks, To improve ability of physical actions for home/community/work/leisure, To improve gait and locomotor functions, To improve health of tissue, To decrease soft tissue restriction, To increase flexibility/ROM, To improve endurance, To improve balance, To improve safety with gait Please do not hesitate to contact me at [phone] by phone or if you have questions or concerns regarding this new plan of care! Sincerely, Paramjit Somers DPT
--- NOTE | 2020-06-04 07:33 | HP.PT.NRP ---
VERONA ARTHUR was seen in my office for initial evaluation on 12/13/19. The following Plan of Care was established for this patient: Initial Frequency: 2x /Week Initial Duration: 4-6 Weeks Patient/Client Instruction: Educate patient on: Condition, Plan of Care, Risk Factors, Benefits of Fitness Program For the Purpose of:: To facilitate caregiver knowledge, To improve self management, To prevent re-injury, To improve ability to perform tasks related to life management, To improve tolerance to ADL's Therapeutic Exercise to Include: Strength training, Power training, Endurance training, Balance training, Coordination, Agility training, Body mechanics, Postural training, Flexibilty training, Gait and locomotor training, Neuromotor development, Passive ROM, Active ROM, Dynamic Lumbar Stabilization For the Purpose of:: To decrease pain, To decrease swelling/inflammation, To increase ROM, To improve nutrient delivery to tissue, To increase oxygenation perfusion, To improve muscle performance and motor function, To improve ability to perform ADL's, To increase tolerance to activity/condition/position, To improve performance and independence with ADL's, To decrease level of supervision to perform tasks, To improve ability of physical actions for home/community/work/leisure, To improve gait and locomotor functions, To improve health of tissue, To decrease soft tissue restriction, To increase flexibility/ROM, To improve endurance, To improve balance, To improve safety with gait This patient was last seen in our office 01/19/20. Pertinent comments regarding their Physical therapy will appear below: Pt. was seen in PT for her CVA. Pt. was treated with functional training, and strengthening. Pt. was doing very well at our last visit. She was to continue on her own and follow up with PT if needed. Pt. has not been seen in several months and will be DC from PT at this point in time. At this point I will be discontinuing this patient from physical therapy. I would be happy to see this patient again in the future if found appropriate by the physician. Thank you! aPramjit Somers, LORAT
== END 2020-01-19 19:00 | disposition home or self-care (01) ==
LOC: PT 14:30
PROVIDERS: Referring Provider Internal Medicine; Visit Provider Internal Medicine
DX: Z86.73 Personal history of transient ischemic attack (TIA), and cerebral infarction without residual deficits (principal)
CPT/HCPCS: 97110; 97112; 97116; 97161; 97164; 97165; 97166; 97530

== ENCOUNTER → 2020-03-23 11:46 | Outpatient (CLI) | payer MEDICARE, SELFPAY ==
[2020-03-23 10:48] VITALS: BMI 25.7
[2020-03-23 15:24] LABS: ALB/GLOB Ratio 1.2 RATIO (0.9-2.4); AST(SGOT) 48 U/L (15-37); Alanine Aminotransfer ALT/SGPT 71 U/L (13-56); Albumin, Serum 4.3 g/dL (3.2-5.0); Alkaline Phosphatase 108 U/L (45-117); Anion Gap 3 (5-15); BUN 14 mg/dL (7-18); BUN/Creat Ratio 14.2 RATIO (10-20); Calcium,Total 9.4 mg/dL (8.5-10.1); Chloride 107 mmol/L (98-107); Creatinine, Serum 0.99 mg/dL (0.55-1.02); EST Glomerular Filtration Rate 60 mL/min (>60); Est Glom Filt Rate - Afr Amer 72 mL/min (>60); Globulin 3.6 g/dL (2.2-4.2); Glucose 90 mg/dL (74-106); Potassium 4.9 mmol/L (3.5-5.1); Protein, Total 7.9 g/dL (6.4-8.2); Sodium Level 139 mmol/L (136-145)
== END ==
PROVIDERS: PCP Internal Medicine; Referring Provider Internal Medicine; Visit Provider Internal Medicine
DX: I10 Essential (primary) hypertension (principal); E78.5 Hyperlipidemia, unspecified
CPT/HCPCS: 36415; 80053

== ENCOUNTER → 2020-09-25 11:38 | Outpatient (CLI) | payer MEDICARE, SELFPAY ==
[2020-09-25 10:52] VITALS: BMI 27.9
[2020-09-25 15:16] LABS: Absolute Lymphocyte Count 2.17 X10^3/uL (0.83-4.51); Absolute Neutrophil Count 2.6 X10^3/uL (2.0-7.7); Basophil# 0.04 X10^3/uL; Basophil% 0.7 % (0-1); Eosinophil# 0.27 X10^3/uL; Eosinophils% 4.8 % (0-5); Hematocrit 40.4 % (37-47); Hemoglobin 13.1 g/dL (12.0-15.0); Lymphocyte # 2.17 X10^3/ul (4.0); Lymphocyte % 38.8 % (19-41); Mean Corp Hgb Conc 32.4 g/dL (32-36); Mean Corpuscular Hgb 31.2 pg (27.0-32.0); Mean Corpuscular Volume 96.2 fL (81-99); Mean Platelet Vol. 11.4 fl (6.2-12.0); Monocyte# 0.51 X10^3/uL; Monocyte% 9.1 % (0-10); NRBC Flagged by Analyzer 0 % (0-5); Neutrophil % 46.6 % (47-70); Platelet Count 208 K/mm3 (150-450); RBC Distribution Width CV 13.2 % (11.6-14.6); RBC Distribution Width SD 46.8 fl (35.1-43.9); White Blood Count 5.6 K/mm3 (4.4-11.0)
[2020-09-25 15:37] LABS: ALB/GLOB Ratio 1.2 RATIO (0.9-2.4); AST(SGOT) 30 U/L (15-37); Alanine Aminotransfer ALT/SGPT 41 U/L (13-56); Albumin, Serum 4.2 g/dL (3.2-5.0); Alkaline Phosphatase 72 U/L (45-117); Anion Gap 5 (5-15); BUN 13 mg/dL (7-18); BUN/Creat Ratio 14.5 RATIO (10-20); Calcium,Total 9.3 mg/dL (8.5-10.1); Chloride 105 mmol/L (98-107); EST Glomerular Filtration Rate 66 mL/min (>60); Est Glom Filt Rate - Afr Amer 80 mL/min (>60); Globulin 3.5 g/dL (2.2-4.2); Glucose 95 mg/dL (74-106); Potassium 4.4 mmol/L (3.5-5.1); Protein, Total 7.7 g/dL (6.4-8.2); Sodium Level 139 mmol/L (136-145)
== END ==
PROVIDERS: PCP Internal Medicine; Referring Provider Internal Medicine; Visit Provider Internal Medicine
DX: I10 Essential (primary) hypertension (principal); R74.8 Abnormal levels of other serum enzymes
CPT/HCPCS: 36415; 80053; 85025

== ENCOUNTER → 2021-01-15 11:04 | Outpatient (CLI) | payer MEDICARE, SELFPAY ==
[2021-01-15 10:45] VITALS: BMI 27.9
[2021-01-15 12:53] LABS: Anion Gap 4 (5-15); BUN 13 mg/dL (7-18); BUN/Creat Ratio 16.4 RATIO (10-20); Calcium,Total 8.7 mg/dL (8.5-10.1); Chloride 102 mmol/L (98-107); Cholesterol 166 mg/dL (200); EST Glomerular Filtration Rate 76 mL/min (>60); Est Glom Filt Rate - Afr Amer 92 mL/min (>60); Glucose 92 mg/dL (74-106); High Density Lipoprotein 75 mg/dL; Sodium Level 135 mmol/L (136-145); Triglycerides 104 mg/dL; Very Low Density Lipoprotein 21 mg/dL (5-40)
== END ==
PROVIDERS: PCP Internal Medicine; Visit Provider Internal Medicine
DX: E78.5 Hyperlipidemia, unspecified (principal); I10 Essential (primary) hypertension
CPT/HCPCS: 36415; 80048; 80061

== ENCOUNTER → 2021-01-29 12:01 | Outpatient (CLI) | payer MEDICARE, SELFPAY ==
[2021-01-15 10:45] VITALS: BMI 27.9
--- NOTE | 2021-01-29 12:04 | BI_ITS ---
MAMMOGRAPHY - BILATERAL SCREENING REASON FOR EXAM: Female, 66 years old. Routine annual screening examination. PERTINENT HISTORY: Daughter with breast cancer. Mother with breast cancer. Aunt with breast cancer. History of prior right excisional breast biopsy. TECHNIQUE: Digital bilateral breast jigar (3D mammographic acquisition) in the CC and MLO projections. 2-D mediolateral oblique (MLO) and craniocaudad (CC) views of both breasts were obtained. CAD: Full Field Digital Mammography with Computer Added Detection was performed. COMPARISON: Comparison is made with prior examination dated 01/03/2020. FINDINGS: Breast Composition: The breasts are heterogeneously dense, which may obscure small masses. There are no dominant masses or suspicious calcifications. Stable benign appearing bilateral axillary lymph nodes. No other significant abnormalities are identified. There has been no significant change since the prior study. BI/SCRN MAMM (CAD)W/JIGAR BILAT IMPRESSION: Stable bilateral screening mammogram. Yearly follow-up mammogram recommended. (A) ASSESSMENT CATEGORY: BIRADS Category 2: Benign. A letter regarding these results will be sent to the patient by the facility within 30 days. Approximately 10% of breast cancers are not detected by mammography. A normal mammogram should not delay biopsy of a clinically suspicious abnormality. [id number] Electronically Signed: Declan Khoury MD at 13:19 EDT , Service support ,
== END ==
PROVIDERS: PCP Internal Medicine; Referring Provider Internal Medicine; Visit Provider Internal Medicine
DX: Z12.31 Encounter for screening mammogram for malignant neoplasm of breast (principal)
CPT/HCPCS: 77063; 77067

== ENCOUNTER → 2021-05-27 11:12 | Outpatient (CLI) | payer MEDICARE, SELFPAY ==
[2021-05-27 12:04] LABS: Absolute Neutrophil Count 2.9 X10^3/uL (2.0-7.7); Basophil# 0.04 X10^3/uL; Basophil% 0.8 % (0-1); Eosinophil# 0.09 X10^3/uL; Eosinophils% 1.7 % (0-5); Hematocrit 38.2 % (37-47); Hemoglobin 13.4 g/dL (12.0-15.0); Lymphocyte % 31.1 % (19-41); Mean Corp Hgb Conc 35.1 g/dL (32-36); Mean Corpuscular Hgb 31.9 pg (27.0-32.0); Monocyte# 0.49 X10^3/uL; Monocyte% 9.5 % (0-10); NRBC Flagged by Analyzer 0 % (0-5); Neutrophil # 2.92 X10^3/uL (2.7-7.7); Neutrophil % 56.7 % (47-70); Platelet Count 229 K/mm3 (150-450); RBC Distribution Width CV 13.5 % (11.6-14.6); White Blood Count 5.2 K/mm3 (4.4-11.0)
[2021-05-27 12:36] LABS: Anion Gap 6 (5-15); BUN 8 mg/dL (7-18); Calcium,Total 9.5 mg/dL (8.5-10.1); Chloride 100 mmol/L (98-107); Creatinine, Serum 0.73 mg/dL (0.55-1.02); EST Glomerular Filtration Rate 85 mL/min (>60); Est Glom Filt Rate - Afr Amer 103 mL/min (>60); Glucose 104 mg/dL (74-106); Potassium 3.8 mmol/L (3.5-5.1); Sodium Level 134 mmol/L (136-145)
== END ==
PROVIDERS: PCP Internal Medicine; Visit Provider Internal Medicine
DX: I10 Essential (primary) hypertension (principal)
CPT/HCPCS: 36415; 80048; 85025

== ENCOUNTER → 2022-01-27 | Outpatient (CLI) | payer MEDICARE, SELFPAY ==
[2022-01-27 12:12] LABS: Absolute Neutrophil Count 2.2 X10^3/uL (2.0-7.7); Basophil# 0.05 X10^3/uL; Basophil% 1.1 % (0-1); Eosinophil# 0.21 X10^3/uL; Eosinophils% 4.7 % (0-5); Hematocrit 37.5 % (37-47); Hemoglobin 12.4 g/dL (12.0-15.0); Lymphocyte % 33.9 % (19-41); Mean Corp Hgb Conc 33.1 g/dL (32-36); Mean Corpuscular Hgb 31.7 pg (27.0-32.0); Mean Corpuscular Volume 95.9 fL (81-99); Mean Platelet Vol. 10.5 fl (6.2-12.0); Monocyte# 0.42 X10^3/uL; Monocyte% 9.5 % (0-10); NRBC Flagged by Analyzer 0 % (0-5); Neutrophil # 2.24 X10^3/uL (2.7-7.7); Neutrophil % 50.6 % (47-70); Platelet Count 205 K/mm3 (150-450); RBC Distribution Width CV 13.7 % (11.6-14.6); RBC Distribution Width SD 48.8 fl (35.1-43.9); Red Blood Count 3.91 M/mm3 (4.2-5.4); White Blood Count 4.4 K/mm3 (4.4-11.0)
[2022-01-27 12:32] LABS: ALB/GLOB Ratio 1.2 RATIO (0.9-2.4); AST(SGOT) 24 U/L (15-37); Alanine Aminotransfer ALT/SGPT 26 U/L (13-56); Albumin, Serum 3.9 g/dL (3.2-5.0); Alkaline Phosphatase 66 U/L (45-117); Anion Gap 3 (5-15); BUN 14 mg/dL (7-18); BUN/Creat Ratio 16.9 RATIO (10-20); Calcium,Total 8.8 mg/dL (8.5-10.1); Chloride 105 mmol/L (98-107); Cholesterol 177 mg/dL (200); Creatinine, Serum 0.83 mg/dL (0.55-1.02); EST Glomerular Filtration Rate 73 mL/min (>60); Est Glom Filt Rate - Afr Amer 88 mL/min (>60); Globulin 3.3 g/dL (2.2-4.2); Glucose 100 mg/dL (74-106); High Density Lipoprotein 83 mg/dL; Potassium 4.1 mmol/L (3.5-5.1); Protein, Total 7.2 g/dL (6.4-8.2); Sodium Level 139 mmol/L (136-145); Triglycerides 111 mg/dL; Very Low Density Lipoprotein 22 mg/dL (5-40)
== END | disposition home or self-care (01) ==
LOC: BIMLAB 11:23
PROVIDERS: PCP Internal Medicine; Referring Provider Internal Medicine; Visit Provider Internal Medicine
DX: I10 Essential (primary) hypertension (principal); E78.5 Hyperlipidemia, unspecified
CPT/HCPCS: 36415; 80053; 80061; 85025

== ENCOUNTER → 2022-02-18 | Outpatient (CLI) | payer MEDICARE, SELFPAY ==
--- NOTE | 2022-02-18 11:54 | BI_ITS ---
MAMMOGRAPHY - BILATERAL SCREENING REASON FOR EXAM: Female, 67 years old. Routine annual screening examination. PERTINENT HISTORY: Daughter with breast cancer. Mother with breast cancer. Aunts with breast cancer. Remote right excisional breast biopsy. TECHNIQUE: Digital bilateral breast jigar (3D mammographic acquisition) in the CC and MLO projections. 2-D mediolateral oblique (MLO) and craniocaudad (CC) views of both breasts were obtained. CAD: Full Field Digital Mammography with Computer Added Detection was performed. COMPARISON: Comparison is made with prior study dated 10/01/2020 and 01/03/2020. FINDINGS: Breast Composition: The breasts are heterogeneously dense, which may obscure small masses. There are no dominant masses or suspicious calcifications. Stable small benign appearing bilateral axillary lymph nodes. No other significant abnormalities are identified. There has been no significant change since the prior study. BI/SCRN MAMM (CAD)W/JIGAR BILAT IMPRESSION: Stable bilateral screening mammogram. Yearly follow-up mammogram recommended. (A) ASSESSMENT CATEGORY: BIRADS Category 2: Benign. A letter regarding these results will be sent to the patient by the facility within 30 days. Approximately 10% of breast cancers are not detected by mammography. A normal mammogram should not delay biopsy of a clinically suspicious abnormality. [id number] Electronically Signed: Declan Khoury MD at 12:47 EDT ,
== END | disposition home or self-care (01) ==
LOC: OPBI 11:44
PROVIDERS: PCP Internal Medicine; Visit Provider Internal Medicine
DX: Z12.31 Encounter for screening mammogram for malignant neoplasm of breast (principal); Z80.3 Family history of malignant neoplasm of breast
CPT/HCPCS: 77063; 77067

== ENCOUNTER → 2022-08-05 | Outpatient (CLI) | payer MEDICARE, SELFPAY | END | disposition home or self-care (01) | LOC: LABSPEC 15:50 | PROVIDERS: PCP Internal Medicine; Referring Provider Physician Assistant; Visit Provider Physician Assistant | DX: U07.1 COVID-19 (principal); R05.9 Cough, unspecified | CPT/HCPCS: 87635; U0003; U0005 ==

== ENCOUNTER → 2022-12-04 | Outpatient (CLI) | payer MEDICARE, SELFPAY ==
[2022-12-04 15:44] LABS: Absolute Lymphocyte Count 1.68 X10^3/uL (0.83-4.51); Absolute Neutrophil Count 2.3 X10^3/uL (2.0-7.7); Basophil# 0.05 X10^3/uL; Basophil% 1.1 % (0-1); Eosinophil# 0.21 X10^3/uL; Eosinophils% 4.4 % (0-5); Hemoglobin 12.6 g/dL (12.0-15.0); Lymphocyte # 1.68 X10^3/ul (0.83-4.51); Lymphocyte % 35.4 % (19-41); Mean Corp Hgb Conc 33.2 g/dL (32-36); Mean Corpuscular Hgb 31.2 pg (27.0-32.0); Mean Corpuscular Volume 94.1 fL (81-99); Monocyte# 0.48 X10^3/uL; Monocyte% 10.1 % (0-10); NRBC Flagged by Analyzer 0 % (0-5); Neutrophil # 2.31 X10^3/uL (2.7-7.7); Neutrophil % 48.6 % (47-70); Platelet Count 224 K/mm3 (150-450); RBC Distribution Width CV 13.3 % (11.6-14.6); RBC Distribution Width SD 45.9 fl (35.1-43.9); Red Blood Count 4.04 M/mm3 (4.2-5.4); White Blood Count 4.8 K/mm3 (4.4-11.0)
[2022-12-04 15:56] LABS: ALB/GLOB Ratio 1.2 RATIO (0.9-2.4); AST(SGOT) 29 U/L (15-37); Alanine Aminotransfer ALT/SGPT 30 U/L (13-56); Albumin, Serum 4.1 g/dL (3.2-5.0); Alkaline Phosphatase 72 U/L (45-117); Anion Gap 3 (5-15); BUN 9 mg/dL (7-18); BUN/Creat Ratio 11.6 RATIO (10-20); Calcium,Total 9.4 mg/dL (8.5-10.1); Chloride 100 mmol/L (98-107); Cholesterol 147 mg/dL (200); Creatinine, Serum 0.77 mg/dL (0.55-1.02); EST Glomerular Filtration Rate 78 mL/min (>60); Est Glom Filt Rate - Afr Amer 95 mL/min (>60); Globulin 3.4 g/dL (2.2-4.2); Glucose 100 mg/dL (74-106); High Density Lipoprotein 77 mg/dL; Potassium 3.9 mmol/L (3.5-5.1); Protein, Total 7.5 g/dL (6.4-8.2); Sodium Level 133 mmol/L (136-145); Triglycerides 92 mg/dL; Very Low Density Lipoprotein 18 mg/dL (5-40)
== END | disposition home or self-care (01) ==
PROVIDERS: PCP Internal Medicine; Referring Provider Internal Medicine; Visit Provider Internal Medicine
DX: I10 Essential (primary) hypertension (principal); E78.5 Hyperlipidemia, unspecified
CPT/HCPCS: 36415; 80053; 80061; 85025

== ENCOUNTER → 2023-02-20 | Outpatient (CLI) | payer MEDICARE, SELFPAY ==
--- NOTE | 2023-02-20 10:44 | BI_ITS ---
MAMMOGRAPHY - BILATERAL SCREENING REASON FOR EXAM: Female, 68 years old. Routine annual screening examination. PERTINENT HISTORY: Daughter with breast cancer. Mother with breast cancer. Aunt with breast cancer. TECHNIQUE: Digital bilateral breast jigar (3D mammographic acquisition) in the CC and MLO projections. 2-D mediolateral oblique (MLO) and craniocaudad (CC) views of both breasts were obtained. CAD: Full Field Digital Mammography with Computer Added Detection was performed. COMPARISON: Comparison is made with prior study dated February 18, 2022 and January 29 FINDINGS: Breast Composition: The breasts are heterogeneously dense, which may obscure small masses. There are no dominant masses or suspicious calcifications. Stable small benign-appearing bilateral axillary lymph nodes. No other significant abnormalities are identified. There has been no significant change since the prior study. BI/SCRN MAMM (CAD)W/JIGAR BILAT IMPRESSION: Stable bilateral screening mammogram. Yearly follow-up mammogram recommended. (A) ASSESSMENT CATEGORY: BIRADS Category 2: Benign. A letter regarding these results will be sent to the patient by the facility within 30 days. Approximately 10% of breast cancers are not detected by mammography. A normal mammogram should not delay biopsy of a clinically suspicious abnormality. [id number] Electronically Signed: Declan Khoury MD at 13:32 EDT ,
== END | disposition home or self-care (01) ==
PROVIDERS: PCP Internal Medicine; Visit Provider Internal Medicine
DX: Z12.31 Encounter for screening mammogram for malignant neoplasm of breast (principal); Z80.3 Family history of malignant neoplasm of breast
CPT/HCPCS: 77063; 77067

== ENCOUNTER → 2023-06-08 | Outpatient (CLI) | payer MEDICARE, SELFPAY ==
[2023-06-08 16:03] LABS: Anion Gap 2 (5-15); BUN 14 mg/dL (7-18); BUN/Creat Ratio 16.4 RATIO (10-20); Calcium,Total 9.5 mg/dL (8.5-10.1); Chloride 105 mmol/L (98-107); Creatinine, Serum 0.85 mg/dL (0.55-1.02); EST Glomerular Filtration Rate 70 mL/min (>60); Est Glom Filt Rate - Afr Amer 85 mL/min (>60); Glucose 106 mg/dL (74-106); Potassium 4.5 mmol/L (3.5-5.1); Sodium Level 138 mmol/L (136-145)
[2023-06-08 19:32] LABS: Vitamin D,25 Hydroxy 43.8 ng/mL
== END | disposition home or self-care (01) ==
LOC: BIMLAB 13:40
PROVIDERS: PCP Internal Medicine; Referring Provider Internal Medicine; Visit Provider Internal Medicine
DX: M85.80 Other specified disorders of bone density and structure, unspecified site (principal); I10 Essential (primary) hypertension
CPT/HCPCS: 36415; 80048; 82306

== ENCOUNTER → 2023-07-23 | Outpatient (CLI) | payer MEDICARE, SELFPAY ==
[2023-07-23 16:37] LABS: Mucous, Urine 0 SEEN /hpf (<or=2+); Squamous Epithelial Cells - UA 0 SEEN /hpf (5-10)
[2023-07-23 16:52] LABS: Color, Urine Yellow (Yellow); Glucose, Dipstick Normal (Normal); Ketone-Dipstick Negative (Negative); Leukocyte Esterase-Dipstick 500 /ul (Negative); Nitrite-Dipstick Negative (Negative); Occult Blood-Urine 150 /ul (Negative); Protein-Dipstick 30 mg/dl (Negative); Specific Gravity, Urine 1.005 (1.002-1.030); Urine Bilirubin Dipstick Negative (Negative); Urine Clarity Sl. Cloudy (Clear); Urine Urobilinogen Normal (Normal)
[2023-07-23 17:11] LABS: Bacteria 1+ /hpf (None Seen); Red Blood Cells-Urine 0-5 SEEN /hpf (0-5); White Blood Cells 10-25 SEEN /hpf (0-5)
== END | disposition home or self-care (01) ==
LOC: LABSPEC 16:02
PROVIDERS: PCP Internal Medicine; Referring Provider Physician Assistant; Visit Provider Physician Assistant
DX: R53.81 Other malaise (principal)
CPT/HCPCS: 81001; 87086; 87088; 87186

== ENCOUNTER → 2023-10-17 | Outpatient (CLI) | payer MEDICARE, SELFPAY ==
--- NOTE | 2023-10-17 11:10 | US_ITS ---
STUDY: RENAL ULTRASOUND - COMPLETE REASON FOR EXAM: Female, 68 years old. UTI TECHNIQUE: Ultrasound evaluation of the kidneys was performed with real-time and static smith-scale imaging. COMPARISON: None. FINDINGS: RIGHT KIDNEY: Normal location of the right kidney, which is normal in size. The right kidney measures 10.3 cm. There is a normal cortex of the right kidney. The renal cortex measures 1.3 cm. There is no right renal mass or cyst. There are no right renal calculi. There is no right hydronephrosis. DISTAL RIGHT URETER: There is non-visualization of the distal right ureter. There is no demonstrated right ureterovesical junction calculus. There is a visualized right ureteral jet. LEFT KIDNEY: Normal location of the left kidney, which is normal in size. The left kidney measures 10.3 cm. There is a normal cortex of the left kidney. The renal cortex measures 1.1 cm. There is no left renal mass or cyst. There are no left renal calculi. There is no left hydronephrosis. DISTAL LEFT URETER: There is non-visualization of the distal left ureter. There is no demonstrated left ureterovesical junction calculus. There is a visualized left ureteral jet. BLADDER: The distended urinary bladder has a volume of 67 ml. The empty urinary bladder has a volume of ml. There is a normal wall thickness of the distended urinary bladder. There is no demonstrated mass within the urinary bladder. There are no demonstrated bladder calculi. US/Kidney and Bladder IMPRESSION: Normal ultrasound of the kidneys and urinary bladder. Electronically Signed: Rigo Bruno MD at 22:53 EST ,
== END | disposition home or self-care (01) ==
PROVIDERS: PCP Internal Medicine; Referring Provider Urology; Visit Provider Urology
DX: N39.0 Urinary tract infection, site not specified (principal)
CPT/HCPCS: 76770

== ENCOUNTER → 2023-12-23 | Outpatient (CLI) | payer MEDICARE, SELFPAY ==
[2023-12-23 15:10] LABS: Absolute Lymphocyte Count 1.66 X10^3/uL (0.83-4.51); Absolute Neutrophil Count 1.9 X10^3/uL (2.0-7.7); Basophil# 0.04 X10^3/uL; Eosinophil# 0.13 X10^3/uL; Eosinophils% 3.1 % (0-5); Hematocrit 36.7 % (37-47); Hemoglobin 12.5 g/dL (12.0-15.0); Lymphocyte # 1.66 X10^3/ul (0.83-4.51); Mean Corp Hgb Conc 34.1 g/dL (32-36); Mean Corpuscular Hgb 30.8 pg (27.0-32.0); Mean Corpuscular Volume 90.4 fL (81-99); Mean Platelet Vol. 11.3 fl (6.2-12.0); Monocyte# 0.45 X10^3/uL; Monocyte% 10.8 % (0-10); NRBC Flagged by Analyzer 0 % (0-5); Neutrophil # 1.86 X10^3/uL (2.7-7.7); Neutrophil % 44.9 % (47-70); Platelet Count 214 K/mm3 (150-450); RBC Distribution Width CV 12.7 % (11.6-14.6); RBC Distribution Width SD 42.3 fl (35.1-43.9); Red Blood Count 4.06 M/mm3 (4.2-5.4); White Blood Count 4.2 K/mm3 (4.4-11.0)
[2023-12-23 15:38] LABS: Vitamin D,25 Hydroxy 65.2 ng/mL
[2023-12-23 15:47] LABS: ALB/GLOB Ratio 1.3 RATIO (0.9-2.4); AST(SGOT) 25 U/L (15-37); Alanine Aminotransfer ALT/SGPT 25 U/L (13-56); Albumin, Serum 4.1 g/dL (3.2-5.0); Alkaline Phosphatase 56 U/L (45-117); Anion Gap 8 (5-15); BUN 11 mg/dL (7-18); BUN/Creat Ratio 14.9 RATIO (10-20); Calcium,Total 9.2 mg/dL (8.5-10.1); Chloride 96 mmol/L (98-107); Cholesterol 148 mg/dL (200); Creatinine, Serum 0.74 mg/dL (0.55-1.02); EST Glomerular Filtration Rate 82 mL/min (>60); Est Glom Filt Rate - Afr Amer 100 mL/min (>60); Globulin 3.1 g/dL (2.2-4.2); Glucose 109 mg/dL (74-106); High Density Lipoprotein 77 mg/dL; Potassium 4.2 mmol/L (3.5-5.1); Protein, Total 7.2 g/dL (6.4-8.2); Sodium Level 130 mmol/L (136-145); Triglycerides 53 mg/dL; Very Low Density Lipoprotein 11 mg/dL (5-40)
== END | disposition home or self-care (01) ==
LOC: BIMLAB 13:18
PROVIDERS: PCP Internal Medicine; Visit Provider Internal Medicine
DX: E78.5 Hyperlipidemia, unspecified (principal); R53.81 Other malaise; F41.9 Anxiety disorder, unspecified; F32.A Depression, unspecified; M85.80 Other specified disorders of bone density and structure, unspecified site
CPT/HCPCS: 36415; 80053; 80061; 82306; 85025

== ENCOUNTER → 2024-01-05 | Outpatient (CLI) | payer MEDICARE, SELFPAY ==
[2024-01-05 12:59] LABS: Anion Gap 8 (5-15); BUN 8 mg/dL (7-18); BUN/Creat Ratio 11.5 RATIO (10-20); Calcium,Total 9.3 mg/dL (8.5-10.1); Chloride 105 mmol/L (98-107); Creatinine, Serum 0.69 mg/dL (0.55-1.02); EST Glomerular Filtration Rate 89 mL/min (>60); Est Glom Filt Rate - Afr Amer 107 mL/min (>60); Glucose 98 mg/dL (74-106); Potassium 4.9 mmol/L (3.5-5.1); Sodium Level 139 mmol/L (136-145)
== END | disposition home or self-care (01) ==
LOC: BIMLAB 11:00
PROVIDERS: PCP Internal Medicine; Visit Provider Internal Medicine
DX: E87.1 Hypo-osmolality and hyponatremia (principal)
CPT/HCPCS: 36415; 80048

== ENCOUNTER → 2024-02-23 | Outpatient (CLI) | payer MEDICARE, SELFPAY ==
--- NOTE | 2024-02-23 13:05 | BI_ITS ---
MAMMOGRAPHY - BILATERAL SCREENING REASON FOR EXAM: Female, 69 years old. Routine annual screening examination. PERTINENT HISTORY: Daughter with breast cancer. Mother with breast cancer. Aunts with breast cancer. Prior right excisional breast biopsy. TECHNIQUE: Digital bilateral breast jigar (3D mammographic acquisition) in the CC and MLO projections. 2-D mediolateral oblique (MLO) and craniocaudad (CC) views of both breasts were obtained. CAD: Full Field Digital Mammography with Computer Added Detection was performed. COMPARISON: Comparison is made with prior study dated February 20, 2023 and February 18, 2022. FINDINGS: Breast Composition: The breasts are heterogeneously dense, which may obscure small masses. There are no dominant masses or suspicious calcifications. Stable small bilateral axillary lymph nodes. No other significant abnormalities are identified. There has been no significant change since the prior study. BI/SCRN MAMM (CAD)W/JIGAR BILAT IMPRESSION: Stable bilateral screening mammogram. Yearly follow-up mammogram recommended. (A) ASSESSMENT CATEGORY: BIRADS Category 2: Benign. A letter regarding these results will be sent to the patient by the facility within 30 days. Approximately 10% of breast cancers are not detected by mammography. A normal mammogram should not delay biopsy of a clinically suspicious abnormality. [id number] Electronically Signed: Declan Khoury MD at 14:13 EDT ,
--- NOTE | 2024-02-23 13:35 | BD_ITS ---
STUDY: DUAL ENERGY X-RAY ABSORPTIOMETRY / DXA REASON FOR EXAM: Female, 69 years old. Post Menopausal TECHNIQUE: Bone Mineral Density (BMD) measurements of lumbar spine and bilateral hips were obtained. COMPARISON: None. FINDINGS: Lumbar Spine (L1-L4): g/cm2 (0.825) / T-score (-2.1) / Z-score (0.1) Findings are suggestive of osteopenia with a high fracture risk. Left Femur Total: g/cm2 (0.944) / T-score (0.0) / Z-score (1.6) Left Femoral Neck: g/cm2 (0.778) / T-score (-0.6) / Z-score (1.2) Right Femur Total: g/cm2 (0.834) / T-score (-0.9) / Z-score (0.7) Right Femoral Neck: g/cm2 (0.741) / T-score (-1.0) / Z-score (0.9) BD/Dexa Bone Density Study IMPRESSION: The patient is considered osteopenic as outlined below according to World [employer] Organization (WHO) criteria with a moderate fracture risk. Reference Information: The T-score is the number of standard deviations above or below the standard which is normal for young adults at their peak bone mineral density. The World Health Organization (WHO) interprets the T-scores as follows: Above -1 Normal bone density Between -1 and -2.5 Osteopenia Equal to / or below -2.5 Osteoporosis As a practical clinical guideline, osteopenia may be graded as follows: Mild -1 through -1.5 Moderate -1.6 through -2.0 Severe -2.1 through -2.4 The Z-score is the number of standard deviations above or below age-matched controls. A Z-score of less than -1.5 would be considered abnormal. References: 1. NIH Osteoporosis and Related Bone Diseases www osteo.org 2. International Society for Clinical Densitometry www iscd.org 3. National Osteoporosis Foundation www nof.org Electronically Signed: Declan Khoury MD at 15:24 EDT ,
== END | disposition home or self-care (01) ==
LOC: OPBI 13:05
PROVIDERS: PCP Internal Medicine; Referring Provider Internal Medicine; Visit Provider Internal Medicine
DX: Z12.31 Encounter for screening mammogram for malignant neoplasm of breast (principal); Z78.0 Asymptomatic menopausal state; Z80.3 Family history of malignant neoplasm of breast
CPT/HCPCS: 77063; 77067; 77080

== ENCOUNTER → 2024-06-27 | Outpatient (CLI) | payer MEDICARE, SELFPAY ==
[2024-06-27 15:40] LABS: Anion Gap 8 (5-15); BUN 10 mg/dL (7-18); BUN/Creat Ratio 13.3 RATIO (10-20); Calcium,Total 9.7 mg/dL (8.5-10.1); Chloride 99 mmol/L (98-107); Creatinine, Serum 0.75 mg/dL (0.55-1.02); EST Glomerular Filtration Rate 81 mL/min (>60); Est Glom Filt Rate - Afr Amer 98 mL/min (>60); Glucose 94 mg/dL (74-106); Potassium 4.2 mmol/L (3.5-5.1); Sodium Level 134 mmol/L (136-145)
== END | disposition home or self-care (01) ==
LOC: BIMLAB 13:33
PROVIDERS: PCP Internal Medicine; Referring Provider Internal Medicine; Visit Provider Internal Medicine
DX: I10 Essential (primary) hypertension (principal)
CPT/HCPCS: 36415; 80048

== ENCOUNTER → 2024-12-26 | Outpatient (CLI) | payer MEDICARE, SELFPAY ==
[2024-12-26 15:41] LABS: Absolute Lymphocyte Count 1.86 X10^3/uL (0.83-4.51); Absolute Neutrophil Count 2.3 X10^3/uL (2.0-7.7); Basophil# 0.05 X10^3/uL; Eosinophil# 0.19 X10^3/uL; Eosinophils% 3.9 % (0-5); Hematocrit 39.1 % (37-47); Hemoglobin 13.1 g/dL (12.0-15.0); Lymphocyte # 1.86 X10^3/ul (0.83-4.51); Lymphocyte % 38.6 % (19-41); Mean Corp Hgb Conc 33.5 g/dL (32-36); Mean Corpuscular Hgb 31.6 pg (27.0-32.0); Mean Corpuscular Volume 94.4 fL (81-99); Mean Platelet Vol. 11.1 fl (6.2-12.0); Monocyte# 0.45 X10^3/uL; Monocyte% 9.3 % (0-10); NRBC Flagged by Analyzer 0 % (0-5); Neutrophil # 2.26 X10^3/uL (2.7-7.7); Platelet Count 203 K/mm3 (150-450); RBC Distribution Width CV 14.4 % (11.6-14.6); RBC Distribution Width SD 49.7 fl (35.1-43.9); Red Blood Count 4.14 M/mm3 (4.2-5.4); White Blood Count 4.8 K/mm3 (4.4-11.0)
[2024-12-26 16:07] LABS: ALB/GLOB Ratio 1.6 RATIO (0.9-2.4); AST(SGOT) 26 U/L (<=31); Alanine Aminotransfer ALT/SGPT 18 U/L (<=34); Albumin, Serum 4.6 g/dL (3.4-4.8); Alkaline Phosphatase 69 U/L (35-104); Anion Gap 11 (5-15); BUN 14 mg/dL (4-19); BUN/Creat Ratio 17.4 RATIO (10-20); Carbon Dioxide 25.3 mmol/L (21.0-32.0); Chloride 103 mmol/L (98-108); Cholesterol 194 mg/dL (<=200); EST Glomerular Filtration Rate 79 (>60); Globulin 2.8 g/dL (2.2-4.2); Glucose 96 mg/dL (70-99); High Density Lipoprotein 81 mg/dL; Low Density Lipoprotein Calc. 93 mg/dL; Potassium 4.6 mmol/L (3.3-5.1); Protein, Total 7.4 g/dL (5.9-8.4); Sodium Level 139 mmol/L (133-145); Total Bilirubin 0.56 mg/dL (0.00-1.30); Triglycerides 104 mg/dL; Very Low Density Lipoprotein 21 mg/dL (5-40); cholesterol:hdl ratio screen 2.41
== END | disposition home or self-care (01) ==
LOC: BIMLAB 13:30
PROVIDERS: PCP Internal Medicine; Referring Provider Internal Medicine; Visit Provider Internal Medicine
DX: E78.5 Hyperlipidemia, unspecified (principal); I10 Essential (primary) hypertension
CPT/HCPCS: 36415; 80053; 80061; 85025

== ENCOUNTER → 2025-03-03 | Outpatient (CLI) | payer MEDICARE, SELFPAY ==
--- NOTE | 2025-03-03 11:00 | BI_ITS ---
EXAM: SCRN MAMM (CAD)W/JIGAR BILAT DATE: 03/03/2025 CLINICAL HISTORY: F, Age 70 y/o , BREAST CANCER SCREENING TECHNIQUE: SCRN MAMM (CAD)W/JIGAR BILAT COMPARISON: Prior exam(s) dated 02/23/2024, 02/20/2023, 02/18/2022. FINDINGS: TISSUE DENSITY: The breasts are heterogeneously dense, which may obscure small masses. The mammogram demonstrates that the patient has dense breasts. Supplemental screening with whole breast ultrasound or MRI may be considered for further evaluation. Bilateral Breast Mammographic Findings: No significant masses, calcifications or other abnormalities are identified. BI/SCRN MAMM (CAD)W/JIGAR BILAT IMPRESSION: There is no mammographic evidence of malignancy. OVERALL FINAL ASSESSMENT BI-RADS 1: NEGATIVE. RECOMMENDATION: Routine annual follow-up in 1 Year A letter with findings and recommendations will be mailed to the patient. Reading Location: [id number]
== END | disposition home or self-care (01) ==
LOC: OPBI 10:59
PROVIDERS: PCP Internal Medicine; Referring Provider Internal Medicine; Visit Provider Internal Medicine
DX: Z12.31 Encounter for screening mammogram for malignant neoplasm of breast (principal)
CPT/HCPCS: 77063; 77067